=== PATIENT | female | born 1985 | race Caucasian/White ===

== ENCOUNTER → 2020-02-27 08:37 | Outpatient (BNVA) | payer OTHER, SELFPAY | PROVIDERS: PCP Internal Medicine; Visit Provider Physician Assistant | DX: Z76.89 Persons encountering health services in other specified circumstances (principal) ==

== ENCOUNTER 2020-03-09 14:13 | Outpatient (REF) | payer OTHER, SELFPAY ==
--- NOTE | 2020-03-09 14:30 | FL_ITS ---
EXAMINATION: FL MODIFIED BARIUM SWALLOW CLINICAL INFORMATION: Dysphagia. COMPARISON: None TECHNIQUE: Modified barium swallow. FINDINGS: Fluoroscopy provided for modified barium swallow done by speech pathology. Patient swallowed solids and liquids of varying consistency. No aspiration is seen. FLUOROSCOPY TIME: 1.2 minutes DOSE AREA PRODUCT: 4.0 uGy-m2 (microgray-meter squared) FL/FL barium swallow modified IMPRESSION: Fluoroscopy for modified barium swallow. No aspiration is seen. Please see speech pathology report for detailed evaluation.
== END 2020-03-09 14:14 | disposition home or self-care (01) ==
LOC: HO.XRAY 14:13
PROVIDERS: PCP Internal Medicine; Referring Provider Internal Medicine; Visit Provider Internal Medicine
DX: R13.10 Dysphagia, unspecified (principal)
CPT/HCPCS: 74230; 92611

== ENCOUNTER 2020-04-13 10:13 | Outpatient (REF) | payer OTHER, SELFPAY | END 2020-04-13 10:14 | disposition home or self-care (01) | LOC: HO.WFDLDS 10:13 | PROVIDERS: Visit Provider Internal Medicine | DX: Z20.822 Contact with and (suspected) exposure to COVID-19 (principal) | CPT/HCPCS: 36415; C9803; U0003 ==

== ENCOUNTER 2020-06-04 14:21 | Outpatient (REF) | payer OTHER, SELFPAY ==
[2020-06-04 15:45] LABS: MANUAL DIFF FLAG NO
[2020-06-04 16:01] LABS: Basophils Absolute Auto 0.1 X10*3/uL (0.0-0.2); Basophils Percent Auto 0.7 % (0-2); Eosinophils Absolute Auto 0.1 X10*3/uL (0.0-0.4); Eosinophils Percent Auto 1.5 % (0-4); Hematocrit 37.9 % (37-47); Imm Gran Abs Auto 0.02 X10*3/uL (0.00-0.03); Imm Gran Pct Auto 0.3 % (0.0-0.4); Lymphocytes Absolute Auto 2.2 X10*3/uL (1.2-4.9); Lymphocytes Percent Auto 31.9 % (20-40); Mean Corpuscular HGB Conc 34.3 g/dl (31.0-35.0); Mean Corpuscular Hemoglobin 30.1 pg (27.0-33.0); Mean Corpuscular Volume 87.7 fL (80-98); Mean Platelet Volume 9.1 fL (9.4-12.3); Monocytes Absolute Auto 0.6 X10*3/uL (0.1-1.2); Neutrophils Percent Auto 57.6 % (45-73); Platelet Count 251 X10*3/uL (160-400); Red Blood Count 4.32 X10*6/uL (4.20-5.50); Red Cell Distribution Width 12.4 % (11.0-16.0); White Blood Count 6.9 X10*3/uL (4.8-10.8)
[2020-06-04 16:12] LABS: Alanine Aminotransferase 11 U/L (0-31); Albumin Level 4.6 g/dL (3.5-5.0); Alkaline Phosphatase 63 U/L (39-117); Anion Gap 11 (12-20); Aspartate Amino Transferase 16 U/L (5-31); Bilirubin Total 0.3 mg/dL (0.0-1.0); Blood Urea Nitrogen 13 mg/dL (9-16); Calcium 9.2 mg/dL (8.4-10.2); Carbon Dioxide 27 mmol/L (22-29); Chloride 106 mmol/L (96-108); Estimated Glomerular Filt Rate > 60; Glucose Random 87 mg/dL (60-115); Potassium 4.1 mmol/L (3.3-5.1); Sodium 140 mmol/L (135-145); Total Protein 7.5 g/dL (6.5-8.0)
[2020-06-04 16:34] LABS: Thyroid Stimulating Hormone 0.63 uIU/mL (0.32-4.0)
== END 2020-06-04 14:22 | disposition home or self-care (01) ==
LOC: HO.LAB 14:21
PROVIDERS: PCP Internal Medicine; Visit Provider Physician Assistant
DX: R10.11 Right upper quadrant pain (principal); R13.10 Dysphagia, unspecified; K31.84 Gastroparesis; R74.01 Elevation of levels of liver transaminase levels; K59.09 Other constipation
CPT/HCPCS: 36415; 80053; 84443; 85025; 99212

== ENCOUNTER 2020-10-02 15:27 | Outpatient (REF) | payer OTHER, SELFPAY ==
--- NOTE | ~2020-10-02 | XR_ITS ---
EXAMINATION: XR LUMBOSACRAL SPINE CLINICAL INFORMATION: Lower back pain. COMPARISON: None. TECHNIQUE: 3 views of the lumbosacral spine. FINDINGS: The lumbar lordosis is maintained. No acute fracture or subluxation. No loss of vertebral body height. Loss of intervertebral disc height with endplate osteophytes at L5-S1. No lytic or blastic osseous lesion. No abnormal soft tissue calcification. XR/XR lumbar spine 2-3V IMPRESSION: Jxee-ee-reehkark degenerative disc disease at L5-S1.
== END 2020-10-02 15:28 | disposition home or self-care (01) ==
LOC: HO.HMGCX 15:27
PROVIDERS: PCP Internal Medicine; Visit Provider Internal Medicine
DX: M54.5 Low back pain (principal)
CPT/HCPCS: 72100

== ENCOUNTER 2021-09-14 15:35 | Outpatient (REF) | payer OTHER, SELFPAY ==
--- NOTE | ~2021-09-14 | MR_ITS ---
EXAMINATION: MR LUMBAR SPINE WITHOUT CONTRAST CLINICAL INFORMATION: 30-year-old with low back pain. COMPARISON: None. TECHNIQUE: MRI of the lumbar spine was obtained using routine sequences without contrast. FINDINGS: CORONAL ALIGNMENT: Slight upper lumbar levocurvature noted which is nonspecific and could be positional or related to muscle spasm. SAGITTAL ALIGNMENT: Normal. LUMBOSACRAL JUNCTION: Normal. 5 ddc-kkt-rzcsoxv lumbar-type vertebral bodies. VERTEBRAL BODIES: Normal height. DISC SPACES AND ENDPLATES: Aseyioyb-lh-bpxpzy loss of disc space height with intradiscal degenerative signal changes and spondylosis at L5-S1. Lgjb-gm-qxoimbhs loss of disc space height and disc desiccation asymmetric to the right at L1-L2. There is mild disc desiccation at L4-L5. Remaining intervertebral discs demonstrate normal height and signal with no significant spondylosis. There are Schmorl's nodes along the endplates anteriorly at L5-S1. SPINAL CANAL: No developmental abnormalities. BONE MARROW: Type I degenerative marrow signal changes noted along the endplates at L5-S1. Otherwise, bone marrow signal intensity appears grossly unremarkable. CONUS MEDULLARIS: Terminates at L1. Morphology and signal is normal. INTRADURAL NERVE ROOTS: Within normal limits. L5-S1: Mild disc bulging noted with minimal encroachment on the ventral dural sac. Superimposed tiny central disc herniation. No neural impingement. No significant DJD, canal or neural foraminal stenosis. L4-L5: Mild diffuse disc bulging noted with slight flattening of the ventral dural sac, with ligamentum flavum thickening and isjq-od-wxybjvrq bilateral facet arthropathy with no significant spinal canal stenosis. There is icdc-wf-uyuqchjv right-sided and mild left-sided neural foraminal stenosis. Small superimposed right foraminal disc protrusion with annular fissuring which abuts the exiting right L4 nerve root. L3-L4: Shallow broad-based left subarticular to foraminal disc protrusion without neural impingement. Mild facet arthropathy noted without significant canal stenosis. Minimal left-sided foraminal narrowing noted. L2-L3: Normal disc contour. No facet arthrosis, canal or neural foraminal stenosis. L1-L2: Mild right subarticular disc protrusion. No facet arthrosis, canal or neural foraminal stenosis. PARASPINAL/RETROPERITONEAL: The paravertebral soft tissues appear unremarkable. MR/MR lumbar spine wo con IMPRESSION: 1. Discogenic degenerative changes at L5-S1 and to a lesser degree at L1-L2 and L4-L5, with slight upper lumbar levocurvature noted. 2. Spondylosis and mild disc bulging at L5-S1 with a tiny central disc herniation, without significant canal or foraminal stenosis and no evidence for neural impingement. 3. Mild disc bulging and right foraminal disc herniation at L4-L5 with right lateral annular fissuring slightly impinging on the exiting right L4 nerve root with bepz-qi-lfxbslyy facet arthropathy at this level, with nvzl-ks-nzmkdfqh right-sided neural foraminal narrowing. 4. Mild facet arthrosis at L3-L4 with a shallow left subarticular to foraminal disc protrusion without neural impingement or spinal stenosis and a mild right subarticular disc protrusion at L1-L2 without neural impingement.
== END 2021-09-14 15:36 | disposition home or self-care (01) ==
LOC: HO.MRI 15:35
PROVIDERS: Visit Provider Internal Medicine
DX: M54.50 Low back pain, unspecified (principal); M47.816 Spondylosis without myelopathy or radiculopathy, lumbar region
CPT/HCPCS: 72148

== ENCOUNTER 2021-12-03 08:21 | Outpatient (REF) | payer OTHER, SELFPAY ==
[2021-12-03 11:42] LABS: Hematocrit 38.5 % (37.0-47.0); Hemoglobin 13.1 g/dl (12.0-16.0)
[2021-12-03 12:06] LABS: Alanine Aminotransferase 20 U/L (0-31); Albumin Level 4.3 g/dL (3.5-5.0); Alkaline Phosphatase 65 U/L (39-117); Anion Gap 14 (12-20); Aspartate Amino Transferase 23 U/L (5-31); Bilirubin Total 0.3 mg/dL (0.0-1.0); Blood Urea Nitrogen 14 mg/dL (9-16); Calcium 9.3 mg/dL (8.4-10.2); Carbon Dioxide 26 mmol/L (22-29); Chloride 106 mmol/L (96-108); Cholesterol 210 mg/dL; Estimated Glomerular Filt Rate > 60; Glucose Fasting 84 mg/dL (60-99); HDL Cholesterol 53 mg/dL; LDL Cholesterol Calculated 142 mg/dl; Potassium 4.5 mmol/L (3.3-5.1); Sodium 141 mmol/L (135-145); Total Protein 7.3 g/dL (6.5-8.0); Triglycerides 77 mg/dL
[2021-12-03 12:15] LABS: TSH reflex Free T4 0.62 uIU/mL (0.32-4.0)
== END 2021-12-03 08:22 | disposition home or self-care (01) ==
LOC: HO.HMGCLDS 08:21
PROVIDERS: PCP Internal Medicine; Visit Provider Internal Medicine
DX: Z00.01 Encounter for general adult medical examination with abnormal findings (principal); E66.09 Other obesity due to excess calories
CPT/HCPCS: 36415; 80053; 80061; 84443; 85014; 85018

== ENCOUNTER 2022-01-28 10:40 | Outpatient (REF) | payer OTHER, SELFPAY ==
[2022-01-28 14:36] LABS: CT PCR NOT DETECTED (Not Detect.); NG PCR NOT DETECTED (Not Detect.)
[2022-01-29 14:59] LABS: BV Int Neg Control Negative (Negative)
[2022-01-29 15:00] LABS: BV Int Pos Control Positive (Positive)
[2022-02-08 06:37] LABS: HPV mRNA E6/E7 rflx Not Detected (Not Detected)
== END 2022-01-28 10:41 | disposition home or self-care (01) ==
LOC: HO.LNP 10:40
PROVIDERS: Visit Provider Advanced Practice Midwife
DX: Z01.419 Encounter for gynecological examination (general) (routine) without abnormal findings (principal); Z11.51 Encounter for screening for human papillomavirus (HPV); R10.2 Pelvic and perineal pain
CPT/HCPCS: 87480; 87491; 87510; 87591; 87624; 87660; 88142

== ENCOUNTER 2022-03-04 11:01 | Outpatient (REF) | payer OTHER, SELFPAY ==
--- NOTE | ~2022-03-04 | US_ITS ---
EXAMINATION: US PELVIS COMPLETE CLINICAL INFORMATION: Pain COMPARISON: None TECHNIQUE: Transabdominal and transvaginal imaging was performed. FINDINGS: The uterus is of normal size and echogenicity measuring 7.4 x 5.4 x 6.0 cm. A regular homogeneous endometrium is identified measuring 1.0 cm. Nabothian cysts in the cervix. A subcentimeter tiny echogenic focus measuring 2 mm in the lower uterine segment at the junction of the uterus and cervix could reflect a tiny endocervical or endometrial polyp, which could be further characterized with saline sonohysterogram if warranted. Both ovaries are of normal size and echogenicity. The right measures 2.3 x 1.6 x 1.7 cm for a volume of 3.3 mL. The left measures 3.0 x 1.5 x 1.6 cm for a volume of 3.8 mL. There is no pelvic free fluid. US/US pelvic and transvaginal IMPRESSION: A subcentimeter tiny echogenic focus measuring 2 mm in the lower uterine segment at the junction of the uterus and cervix could reflect a tiny endocervical or endometrial polyp, which could be further characterized with saline sonohysterogram if warranted.
== END 2022-03-04 11:02 | disposition home or self-care (01) ==
LOC: HO.US 11:01
PROVIDERS: Visit Provider Advanced Practice Midwife
DX: R10.2 Pelvic and perineal pain (principal)
CPT/HCPCS: 76830; 76856

== ENCOUNTER → 2022-03-22 08:29 | Outpatient (BNVA) | payer OTHER, SELFPAY | PROVIDERS: PCP Internal Medicine; Visit Provider Advanced Practice Midwife | DX: Z71.2 Person consulting for explanation of examination or test findings (principal); R10.2 Pelvic and perineal pain; R93.5 Abnormal findings on diagnostic imaging of other abdominal regions, including retroperitoneum | CPT/HCPCS: 99212 ==

== ENCOUNTER → 2022-04-18 11:38 | Outpatient (BNVA) | payer OTHER, SELFPAY | PROVIDERS: PCP Internal Medicine; Visit Provider Obstetrics & Gynecology | DX: N84.0 Polyp of corpus uteri (principal) | CPT/HCPCS: 99212 ==

== ENCOUNTER 2022-05-10 11:18 | Outpatient (REF) | payer OTHER, SELFPAY ==
--- NOTE | ~2022-05-10 | US_ITS ---
EXAMINATION: US PELVIS CLINICAL INFORMATION: Uterine polyp. COMPARISON: None TECHNIQUE: Ultrasound of the pelvis is performed using both transabdominal and transvaginal transducers along with Doppler. Transvaginal imaging is performed due to inadequate visualization transabdominally. FINDINGS: UTERUS: The uterus is anteverted and measures 8.6 x 3.3 x 5.8 cm. The double wall endometrial thickness is 0.8 mm. The uterus is smooth in contour and has normal myometrial echogenicity. No visible fibroid. A small echogenic focus is seen in the lower uterine segment measuring 4 mm in/near the endometrial canal. This is increased in size from prior when it measured 2 mm. Nabothian cysts are present in the cervix. ADNEXA: Both ovaries are visualized. There is normal color flow to the adnexa. There is no ovarian torsion. There is no pelvic ascites or fluid collection. Right ovary measures 2.3 x 1.1 x 2.0 cm for a volume of 2.6 mL. Left ovary measures 2.0 x 1.4 x 1.7 cm for a volume of 2.5 mL. US/US pelvic and transvaginal IMPRESSION: 4 mm echogenic focus seen in the lower uterine segment increased from prior exam. This could be an endometrial polyp which could be evaluated with hysterosonography for confirmation. No other significant abnormality is seen.
== END 2022-05-10 11:19 | disposition home or self-care (01) ==
LOC: HO.US 11:18
PROVIDERS: Visit Provider Advanced Practice Midwife
DX: N84.0 Polyp of corpus uteri (principal)
CPT/HCPCS: 76830; 76856

== ENCOUNTER → 2022-05-25 09:56 | Outpatient (BNVA) | payer OTHER, SELFPAY | PROVIDERS: PCP Internal Medicine; Visit Provider Obstetrics & Gynecology | DX: N84.0 Polyp of corpus uteri (principal) | CPT/HCPCS: 99212 ==

== ENCOUNTER 2022-07-15 08:48 | Day surgery (SDC) | payer OTHER, SELFPAY ==
[2022-06-10 14:55] VITALS: BMI 33.3
--- NOTE | 2022-07-14 09:49 | HO.ANESPROP2 ---
Documented by User: Leonela Ramirez NP 07/14/22 09:49 HPI - Anesthesia Eval Consult details Narrative: 37yo F for D&C Hysteroscopy,possible polypectomy possible myomectomy PMFSH Active Problems Active Problems: All Active Problems (Updated 06/10/22 @ 14:43 by Ro Pradhan RN) Lumbar pain (Acute) Encounter for general adult medical examination with abnormal findings (Acute) Obesity due to excess calories (Acute) Degenerative joint disease (DJD) of lumbar spine (Acute) Lumbar pain (Acute) Herniated nucleus pulposus, lumbar (Acute) Neural foraminal stenosis of lumbar spine (Acute) Abnormal MRI, lumbar spine (Acute) Encounter for routine gynecological examination (Acute) Acid reflux (Acute) Encounter for annual routine gynecological examination (Acute) Pelvic pain in female (Acute) Endometrial polyp (Acute) Difficulty swallowing (Acute) Past Medical History Medical History (Updated 06/10/22 @ 14:43 by Ro Pradhan RN) Degenerative joint disease (DJD) of lumbar spine Difficulty swallowing GERD (gastroesophageal reflux disease) Family History Family History Father No problems noted. Maternal Grandfather Coronary atherosclerosis of bypass graft Paternal Grandfather Diabetes Surgical History Surgical History (Updated 06/10/22 @ 14:55 by Ro Pradhan RN) Hx of appendectomy Social History Social History Household Members: Family and Children Household Members Other:: mother & son Housing: House Are you a primary manager intensive care unit to a significant other at home: Yes (son is a minor) Do you presently have visiting nurse or other home services: No Alcohol intake: never Patient Tobacco Use Status: Never used Tobacco e-Cigarette/Vaping Use: Never Used Second Hand Smoke Exposure: No service: Yes Current occupational status: employed Current occupation: [employer] Cognitive needs: No Hearing needs: No Vision needs: Yes Meds Allergies Allergy/AdvReac Type Severity Reaction Status Date / Time No Known Allergies Allergy Verified 05/25/22 10:02 Home Medications Medication Instructions Recorded Confirmed Last Taken Type No Known Home Meds 08/24/21 06/10/22 Unknown History Exam Exam Date and Time: July 14, 2022 0949 Height,Weight and Vital Signs: Height 5 ft 7 in Weight 96.615 kg Assessment and Plan Assessment Anesthesia Assessment: Chart Reviewed Documented by User: Freddy Guthrie MD 07/15/22 10:02 [facility] Past Medical History Medical History (Updated 06/10/22 @ 14:43 by Ro Pradhan RN) Degenerative joint disease (DJD) of lumbar spine Difficulty swallowing GERD (gastroesophageal reflux disease) Patient : No Family History Family History Father No problems noted. Maternal Grandfather Coronary atherosclerosis of bypass graft Paternal Grandfather Diabetes Family history of problems with anesthesia: No Surgical History Surgical History (Updated 06/10/22 @ 14:55 by Ro Pradhan RN) Hx of appendectomy History of Problems with Anesthesia: No Social History Social History Household Members: Family and Children Household Members Other:: mother & son Housing: House Are you a primary manager intensive care unit to a significant other at home: Yes (son is a minor) Do you presently have visiting nurse or other home services: No Alcohol intake: never Patient Tobacco Use Status: Never used Tobacco e-Cigarette/Vaping Use: Never Used Second Hand Smoke Exposure: No service: Yes Current occupational status: employed Current occupation: [employer] Cognitive needs: No Hearing needs: No Vision needs: Yes Meds Allergies Allergy/AdvReac Type Severity Reaction Status Date / Time No Known Allergies Allergy Verified 05/25/22 10:02 Home Medications Medication Instructions Recorded Confirmed Last Taken Type No Known Home Meds 08/24/21 06/10/22 Unknown History Exam Airway Mallampati Class: I TM Dist: >3cm Neck ROM: Full Heart: ok Lungs: ok Assessment and Plan Assessment Anesthesia Assessment: Anesthesia Plan Discussed Final Anesthetic Review Family History of Problems with Anesthesia: No History of Problems with Anesthesia: No NPO: Yes ASA Class: II Final Preanesthetic Review: No Changes in Pt Med Stat, Meds/Allgs Chart Reviewed, Consent Obtained/Reviewed and Anes Risks/Benef Reviewed Patient Risk: Low Procedure Risk: Low Anesthetic Plan Anesthetic Plan: GA and Agree w/ Assess. and Plan Disposition: Standard PACU
[2022-07-15] VITALS (7 sets, daily range): BP systolic 111–130; BP diastolic 64–88; PULSE 55–84; RESP 16–18; TEMP 36.6–36.8; O2SAT 96–100; BMI 33.6
[2022-07-15 09:20] LABS: UPreg QC Valid YES; Urine Pregnancy NEGATIVE (NEGATIVE)
[2022-07-15] MEDS: Lactated Ringers 1,000 ML 100 ML IVCONT (09:44)
--- NOTE | 2022-07-15 10:23 | MHC.SHP ---
Pre-Procedural Eval Section A Date of Service: 07/15/22 The patient is an INPATIENT: No Changes since office visit: No Cold of Flu in the past 2 weeks, No New Medical Problems, No Changes in Medication and No Patient answered all questions The History & Physical has been completed within 30 days and I have reviewed it.: Yes Section B Chief Complaint: Polyp of corpus uteri Allergies: Allergies Allergy/AdvReac Type Severity Reaction Status Date / Time No Known Allergies Allergy Verified 05/25/22 10:02 Plan Diagnosis/Plan: Unchanged I have reviewed the history and physical and performed a pertinent physical examination on my patient. No changes have occurred unless specified. Time Spent With Patient Time: Total time managing care of this patient today ____ minutes.
--- NOTE | 2022-07-15 11:02 | PM.OP ---
Brief Operative Note Date of Service: 07/15/22 Pre-op diagnosis: Endometrial polyp by ultrasound Post-op diagnosis: same (? Endometrial polyp) Procedure: Hysteroscopy D&C, Polypectomy Surgeon: Chuy Segovia MD Anesthesia: GLMA Was an Typesetter Perforator Operator used for this Procedure?: No Estimated blood loss (mL): 0 Pathology: other (Endometrial Scrapping. ? Polyp) Condition: stable Disposition: PACU
--- NOTE | 2022-07-15 11:03 | W.PM.OPN ---
Operative Note Operative Note Date of Service: 07/15/22 Narrative: Preop Diagnosis: Endometrial polyp by US Operation: Diagnostic Hysteroscopy, Dilataion & Curettage and polypectomy Post Op Diagnosis: Questionable small lower uterine segment Endometrial Polyp QBL: Minimal Anesthesia: GLMA Surgeon: Chuy Segovia MD Channel Process Plant Operator: None Complication: None Pathology: Endometrial Scrapings, ? Endometrial polyp Procedure: The patient was put in the dorsal lithotomy position, scrubbed, and draped in the usual manner. A sterile speculum was inserted in the patient's vagina. The anterior lip of the cervix was grasped with a single tooth tenaculum. The cervix was dilated up to 5 mm, then the scope was inserted in the patient's uterus. Inspection revealed a small questionable lower uterine segment endometrial polyp. The Myosure Reach device was used; it was introduced through the operative channel and removal of the tissues looking like questionable polyp was done with no complications. The scope was then taken out from the uterine cavity, sharp curettings was carried on with minimal to moderate amount of tissues retrieved. At the end of the procedure, all instruments were taken out of the patient uterine and vaginal cavity. The single tooth tenaculum was removed and homeostasis was assured using pressure,. The patient tolerated the procedure well and was transferred to the PACU in a stable condition.
[2022-07-15] MEDS: Acetaminophen 1,000 MG/100 ML PIGGYBACK 400 MG IV (11:46)
[2022-07-15] MEDS: Ketorolac Tromethamine 30 MG/ML VIAL IVPUSH (11:48)
== END 2022-07-15 13:10 | disposition home or self-care (01) ==
PROVIDERS: Nurse Practitioner; PCP Internal Medicine; Visit Provider Obstetrics & Gynecology
PROC: 0UDB8ZZ Extraction of Endometrium, Via Natural or Artificial Opening Endoscopic (ICD-10-PCS; CPT 58558; principal; 2022-07-15 10:30)
DX: N84.0 Polyp of corpus uteri (principal)
CPT/HCPCS: 58558; 81025; 88305; J0131; J1885; J2250; J3010

== ENCOUNTER → 2022-07-28 11:50 | Outpatient (BNVA) | payer OTHER, SELFPAY | PROVIDERS: PCP Internal Medicine; Visit Provider Obstetrics & Gynecology | DX: N84.0 Polyp of corpus uteri (principal); Z98.890 Other specified postprocedural states | CPT/HCPCS: 99212 ==

== ENCOUNTER 2023-02-01 07:58 | Outpatient (AMB) | payer BC, SELFPAY ==
[2023-02-01 08:13] VITALS: BP 110/70; BMI 30.9
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
== END 2023-02-01 08:30 | disposition home or self-care (01) ==
PROVIDERS: Visit Provider Advanced Practice Midwife
DX: Z01.419 Encounter for gynecological examination (general) (routine) without abnormal findings (principal)
CPT/HCPCS: 99395

== ENCOUNTER → 2023-02-01 07:58 | Outpatient (BNVA) | payer BC, SELFPAY | PROVIDERS: Visit Provider Advanced Practice Midwife ==

== ENCOUNTER 2023-07-11 14:29 | Outpatient (AMB) | payer BC, SELFPAY ==
[2023-07-11 14:35] VITALS: BP 114/80; PULSE 80; O2SAT 98; BMI 30.2
--- NOTE | 2023-07-11 14:35 | MHC.PC.OV ---
Vital Signs 07/11/23 14:35 Height 5 ft 7 in Weight 193 lb BMI 30.2 BP 114/80 Blood Pressure Location Lt brachial Position Sitting Pulse 80 Pulse Source Pulse Oximeter Pulse Oximetry (%) 98 Oxygen Delivery Method Room Air Intake Visit Reasons: Annual Physical Allergies No Known Allergies Allergy (Verified 07/11/23 14:35) Medication List - Last Reconciled 07/11/23 by Starr Licea MD No Known Home Meds Tobacco use date assessed: 07/11/23 Dental Screening Dental Screen Date: 07/11/23 Did you have a dental visit in the last 12 months?: Yes Did you have a dental problem in the last 6 months where you did not have access to dental care?: No Was dental information given to patient?: Patient has dentist HPI Annual Physical HPI Details Patient is a 38-year-old female who came in today for physical examination Patient was last seen 2021 She has a long history of acid reflux She was started on omeprazole which started causing headaches so she stopped Now she is using [id number] Prilosec and is tolerating but she is only taking it when her symptoms are worse She is at that point where now she is having difficulty swallowing solids and have a 80 dated cough I have sent famotidine prescription with the patient she is to start taking that And referral to gastroenterology placed Lab order placed to be done fasting. She also need to lose weight as BMI is elevated. Patient have OBGYN at [facility] and she is seeing them yearly, breast exams are through OBGYN [facility] Medical History Degenerative joint disease (DJD) of lumbar spine GERD (gastroesophageal reflux disease) Difficulty swallowing Surgical History Hx of appendectomy Family History Father No problems noted. Maternal Grandfather Coronary atherosclerosis of bypass graft Paternal Grandfather Diabetes Social History Household Members: Family and Children Household Members Other:: mother & son Housing: House Are you a primary care trainer to a significant other at home: Yes (son is a minor) Do you presently have visiting nurse or other home services: No Alcohol intake: never Patient Tobacco Use Status: Never used Tobacco e-Cigarette/Vaping Use: Never Used Second Hand Smoke Exposure: No service: Yes Current occupational status: employed Current occupation: [employer] Cognitive needs: No Hearing needs: No Vision needs: Yes Female Reproductive History Menstrual Age of Menarche: 14 Questionnaire PHQ-9 Over the last 2 weeks, how often have you been bothered by any of the following problems? 1. Little interest or pleasure in doing things: not at all 2. Feeling down, depressed, or hopeless: not at all 3. Trouble falling or staying asleep, or sleeping too much: not at all 4. Feeling tired or having little energy: not at all 5. Poor appetite or overeating: not at all 6. Feeling bad about yourself - or that you are a failure or have let yourself or your family down: not at all 7. Trouble concentrating on things, such as reading the newspaper or watching television: not at all 8. Moving or speaking so slowly that other people could have noticed. Or the opposite - being so fidgety or restless that you have been moving around a lot more than usual: not at all 9. Thoughts that you would be better off or of hurting yourself in some way: not at all Total score: 0 Depression Screening Interpretation: Negative Depression Screening Done: Yes 21803 - PHQ-9 Billing: Yes Source: Developed by Drs. Gregory Montero, Sushma Rosenberg, Nikos Santiago and colleagues, with an educational bin from [employer]. Thrive Questionnaire Date Thrive assessed: 07/11/23 I am a: Patient Within the past 12 months, did the food you bought not last and you didn't have the money to get more?: Never true Within the past 12 months, did you worry whether your food would run out before you got money to buy more?: Never true Do you have trouble paying for medicines?: No Do you have trouble getting transportation to medical appointments?: No Do you have trouble paying your heating and electricity bill?: No Do you have trouble taking care of your child, family member or friend?: No Do you have trouble with day-to-day activities such as bathing, preparing meals, shopping, managing finances, etc.?: No Are you currently unemployed and looking for a job?: No Are you interested in more education?: No Please select the resources that you would like help with: None Currently or been in a relationship where the following occur: no concerns reported THRIVE Score: 0 AUDIT C Alcohol Use Questionnaire (AUDIT-C) 1. How often do you have a drink containing alcohol?: Never 3. How often do you have six or more drinks on one occasion?: Never Total Score: 0 Score Reviewed/Action Taken: No REMA-7 AMB Questionnaire REMA-7 Date REMA - 7 assessed: 07/11/23 Feeling nervous, anxious, or on edge: 0 = Not at all Not being able to stop or control worryin = Not at all Worrying too much about different things: 0 = Not at all Trouble relaxin = Not at all Being so restless that it is hard to sit still: 0 = Not at all Becoming easily annoyed or irritable: 0 = Not at all Feeling afraid as if something awful might happen: 0 = Not at all Total REMA-7 score (0-4 normal; 5-9 mild; 10-14 moderate; 15-21 severe): 0 Source: Developed by Drs. Gregory Montero, Sushma Rosenberg, Nikos Santiago and colleagues, with an educational bin from [employer]. REMA-7 Assessment Billing REMA-7 Assessment Tool: REMA-7 Assessment 56347 Review of Systems Const Denies chills, Denies fever(s) and Denies headache(s) Eyes Denies blurry vision ENT Denies headache(s), Denies nasal discharge, Denies nasal obstruction, Denies odynophagia and Denies sinus pain Card Denies chest pain at rest and Denies chest pain with activity Resp Denies cough and Denies hemoptysis GI Denies diarrhea, Denies odynophagia, Denies vomiting and Denies hematemesis Reports as per HPI Musc Denies abnormal gait Skin/Breast Reports as per HPI Neuro Denies Neuro-related abnormal movements, Denies Abnormal speech present, Denies abnormal gait, Denies headache(s) and Denies Sensory deficit (Neuro) Psych Denies mood swings and Denies paranoia Endo Reports as per HPI Bryant/Lymph Reports as per HPI Aller/Immun Reports as per HPI Physical exam (Primary Care) Vital Signs: Last Vital Signs Pulse 80 07/11/23 14:35 BP 114/80 07/11/23 14:35 Pulse Ox 98 07/11/23 14:35 Oxygen Delivery Method Room Air 07/11/23 14:35 BMI result Body Mass Index 30.2 Tobacco/Smoking Status: Tobacco use Status Tobacco use date assessed 07/11/23 07/11/23 14:36 Patient Tobacco Use Status Never used Tobacco 07/11/23 14:36 e-Cigarette/Vaping Use Never Used 07/11/23 14:36 PHQ-9: PHQ-9 Score PHQ-9: Total score 0 07/11/23 15:07 Depression Screening Interpretation: Negative Thrive Assessment: Date of Thrive Assessment Date Thrive assessed 07/11/23 07/11/23 14:39 Currently or been in a relationship where the following occur: no concerns reported Const General: cooperative, comfortable and no acute distress Orientation/consciousness: patient oriented x3 HENMT Head: Yes normocephalic and Yes atraumatic Eyes General: appearance normal, both eyes and all related structures Pupils: Equal, round and reactive pupils present EOM: EOMs intact bilaterally Neck Neck: Yes supple and No lymphadenopathy Thyroid: Thyroid normal Lymphatic: no lymphadenopathy noted Resp Effort & Inspection: normal respiratory effort and able to speak in complete sentences Auscultation: clear to auscultation bilaterally Cardio Heart sounds: S1 normal heart sound present and S2 normal heart sound present GI Palpation (GI): Soft to palpation and nontender Auscultation: normal bowel sounds General: Yes no CVA tenderness Back/Spine/Pelvis Back: no CVA tenderness Skin General skin exam: elasticity normal and turgor normal Neuro General: patient oriented x3 and gait normal Cranial nerves: Yes Equal, round and reactive pupils present Speech: No Abnormal speech present Sensory Exam: No Sensory deficit (Neuro) Coordination: tandem gait normal and Romberg test negative Extrem General: Yes normal exam except as noted and No edema Assessment and Plan Assessment & Plan (1) Encounter for general adult medical examination with abnormal findings: Code(s): Z00.01 - Encounter for general adult medical examination with abnormal findings (2) Acid reflux: Code(s): K21.9 - Gastro-esophageal reflux disease without esophagitis Qualifiers: Esophagitis bleeding: unspecified whether hemorrhage Esophagitis presence: with esophagitis Qualified Code(s): K21.00 - Gastro-esophageal reflux disease with esophagitis, without bleeding (3) Difficulty swallowing solids: Code(s): R13.10 - Dysphagia, unspecified Plan Patient is a 38-year-old female who came in today for physical examination Patient was last seen 2021 She has a long history of acid reflux She was started on omeprazole which started causing headaches so she stopped Now she is using [id number] Prilosec and is tolerating but she is only taking it when her symptoms are worse She is at that point where now she is having difficulty swallowing solids and have a 80 dated cough I have sent famotidine prescription with the patient she is to start taking that And referral to gastroenterology placed Lab order placed to be done fasting. She also need to lose weight as BMI is elevated. Patient have OBGYN at [facility] and she is seeing them yearly, breast exams are through OBGYN Orders: Orders Lipid Panel Today K21.9 - Gastro-esophageal reflux disease without esophagitis, R13.10 - Dysphagia, unspecified, Z00.01 - Encounter for general adult medical examination with abnormal findings Complete Blood Count Auto Diff Today K21.9 - Gastro-esophageal reflux disease without esophagitis, R13.10 - Dysphagia, unspecified, Z00.01 - Encounter for general adult medical examination with abnormal findings Comprehensive [place]. Panel Fast Today K21.9 - Gastro-esophageal reflux disease without esophagitis, R13.10 - Dysphagia, unspecified, Z00.01 - Encounter for general adult medical examination with abnormal findings TSH reflex Free T4 Today K21.9 - Gastro-esophageal reflux disease without esophagitis, R13.10 - Dysphagia, unspecified, Z00.01 - Encounter for general adult medical examination with abnormal findings Vitamin D 25-OH (D2 and D3) Today K21.9 - Gastro-esophageal reflux disease without esophagitis, R13.10 - Dysphagia, unspecified, Z00.01 - Encounter for general adult medical examination with abnormal findings Referrals Gastroenterology Referral K21.9 - Gastro-esophageal reflux disease without esophagitis, R13.10 - Dysphagia, unspecified Medications: New famotidine 40 mg PO DAILY 30 tabs 1RF Coding Level of Care Code Est Pt Level 3 (78774) Est Pt Prev Care 18-39y(03376) Diagnoses Encounter for general adult medical examination with abnormal findings Z00.01 Gastroesophageal reflux disease with esophagitis, unspecified whether hemorrhage K21.00 Esophagitis bleeding: unspecified whether hemorrhage Esophagitis presence: with esophagitis Difficulty swallowing solids R13.10 Additional Codes REMA-7 Assessment Billing - REMA-7 Assessment Tool: REMA-7 Assessment 68032 ([id number])
== END 2023-07-11 15:03 | disposition home or self-care (01) ==
PROVIDERS: PCP Internal Medicine; Visit Provider Internal Medicine
DX: Z00.01 Encounter for general adult medical examination with abnormal findings (principal); K21.00 Gastro-esophageal reflux disease with esophagitis, without bleeding; R13.10 Dysphagia, unspecified
CPT/HCPCS: 99213; 99395

== ENCOUNTER 2023-08-14 06:03 | Outpatient (REF) | payer BC, SELFPAY ==
[2023-08-14 06:15] LABS: MANUAL DIFF FLAG NO
[2023-08-14 07:45] LABS: Basophils Absolute Auto 0.1 X10*3/uL (0.0-0.2); Basophils Percent Auto 1.2 % (0-2); Eosinophils Absolute Auto 0.2 X10*3/uL (0.0-0.4); Eosinophils Percent Auto 2.9 % (0-4); Hematocrit 39.7 % (37.0-47.0); Hemoglobin 13.5 g/dl (12.0-16.0); Imm Gran Abs Auto 0.02 X10*3/uL (0.00-0.03); Imm Gran Pct Auto 0.3 % (0.0-0.4); Lymphocytes Percent Auto 30.6 % (20-40); Mean Corpuscular Hemoglobin 29.7 pg (27.0-33.0); Mean Corpuscular Volume 87.3 fL (80.0-98.0); Mean Platelet Volume 9.5 fL (9.4-12.3); Monocytes Absolute Auto 0.7 X10*3/uL (0.1-1.2); Monocytes Percent Auto 10.1 % (2-11); Neutrophils Absolute Auto 3.6 x10*3/uL (2.0-8.3); Neutrophils Percent Auto 54.9 % (45-73); Platelet Count 228 X10*3/uL (160-400); Red Blood Count 4.55 X10*6/uL (4.20-5.50); Red Cell Distribution Width 12.4 % (11.0-16.0); White Blood Count 6.6 X10*3/uL (4.8-10.8)
[2023-08-14 08:31] LABS: Alanine Aminotransferase 15 U/L (0-31); Albumin Level 4.4 g/dL (3.5-5.0); Alkaline Phosphatase 61 U/L (39-117); Anion Gap 14 (12-20); Aspartate Amino Transferase 18 U/L (5-31); Bilirubin Total 0.4 mg/dL (0.0-1.0); Blood Urea Nitrogen 17 mg/dL (9-16); Calcium 9.5 mg/dL (8.4-10.2); Carbon Dioxide 24 mmol/L (22-29); Chloride 107 mmol/L (96-108); Cholesterol 207 mg/dL (<200); Estimated Glomerular Filt Rate > 60; Glucose Fasting 86 mg/dL (60-99); HDL Cholesterol 58 mg/dL (>40); LDL Cholesterol Calculated 135 mg/dL (<100); Potassium 4.1 mmol/L (3.3-5.1); Sodium 141 mmol/L (135-145); Total Protein 7.6 g/dL (6.5-8.0); Triglycerides 74 mg/dL (<150)
[2023-08-14 08:33] LABS: TSH reflex Free T4 0.91 uIU/mL (0.32-4.0)
[2023-08-18 16:03] LABS: Vitamin D 25-OH, D2 <4 ng/mL; Vitamin D 25-OH, D3 22 ng/mL; Vitamin D 25-OH, Total 22 ng/mL (30-100)
== END 2023-08-14 06:04 | disposition home or self-care (01) ==
LOC: HO.LAB 06:03
PROVIDERS: PCP Internal Medicine; Visit Provider Internal Medicine
DX: Z00.01 Encounter for general adult medical examination with abnormal findings (principal); R13.10 Dysphagia, unspecified; K21.9 Gastro-esophageal reflux disease without esophagitis
CPT/HCPCS: 36415; 80053; 80061; 82306; 84443; 85025

== ENCOUNTER 2023-08-14 07:17 | Outpatient (AMB) | payer BC, SELFPAY ==
[2023-08-14 07:21] VITALS: BP 137/74; PULSE 72; BMI 30.7
--- NOTE | 2023-08-14 07:21 | A.OFFVIS_ITS ---
Vital Signs 08/14/23 07:21 Height 5 ft 7 in Weight 196 lb 3.382 oz BMI 30.7 BP 137/74 Blood Pressure Location Lt brachial Position Sitting Pulse 72 Intake Visit Reasons: GERDand Dysphagia Intake Note: Patient referred by PCP Dr. Licea for GERD and dysphagia. Was prescribed Famotidine and taking it daily. Reports some improvement with famotide. Recent drawn this morning. Patient c/o: diarrhea/ soft stools. Has not have solid BM in months. Stomach upset. Taking TUMS daily. Tooth Grinder Required: No Accompanied by: Self / Same As Patient Allergies No Known Allergies Allergy (Verified 08/14/23 07:27) HPI Comments Details: A 38 y/.o female with dysphagia x 4 years- drinks full water bottle when she eats - severe acid reflux- seen in and 2020-she was to be scheduled for EGD poss dil- she did not follow through- she had anxiety- in which seems to have improved- She does have loose stools past few months- she feels sour stomach -she says that she is less stress now than she has ever been so does not feel it is likely IBS Famotidine 40 mg-seems to get better coverage than previously omeprazole. However she continues to have some breakthrough. Nothing specific exacerbate or improve sx She has no other GI or general complaints No nausea, vomiting hematemesis, hematochezia fever or PFSH Medical History Degenerative joint disease (DJD) of lumbar spine GERD (gastroesophageal reflux disease) Difficulty swallowing Surgical History Hx of appendectomy Family History Father No problems noted. Maternal Grandfather Coronary atherosclerosis of bypass graft Paternal Grandfather Diabetes Social History Household Members: Family and Children Household Members Other:: mother & son Housing: House Are you a primary home health care coordinator to a significant other at home: Yes (son is a minor) Do you presently have visiting nurse or other home services: No Alcohol intake: never Patient Tobacco Use Status: Never used Tobacco e-Cigarette/Vaping Use: Never Used Second Hand Smoke Exposure: No service: Yes Current occupational status: employed Current occupation: [employer] Cognitive needs: No Hearing needs: No Vision needs: Yes Female Reproductive History Menstrual Age of Menarche: 14 Review of Systems Const All systems reviewed & are unremarkable except as noted in HPI and below Card Denies chest pain and Denies dyspnea Resp Denies dyspnea GI Reports heartburn and Reports loose stools Physical Exam Vital Signs: Last Vital Signs Pulse 72 08/14/23 07:21 BP 137/74 08/14/23 07:21 BMI result Body Mass Index 30.7 Const General: cooperative, healthy appearing, comfortable and no acute distress Orientation/consciousness: patient oriented x3 Limitations: no limitations Resp Effort & Inspection: normal respiratory effort and able to speak in complete sentences Auscultation: clear to auscultation bilaterally, no rales, no rhonchi and no wheezes Cardio Rate: regular rate Rhythm: regular rhythm Heart sounds: S1 normal heart sound present and S2 normal heart sound present GI Palpation (GI): Soft to palpation and nontender Auscultation: normal bowel sounds Skin General skin exam: no rashes or lesions noted Neuro General: patient oriented x3 Extrem General: Yes full ROM Psych Appearance: grossly normal and well kempt Mental Status: mental status grossly normal Speech and movement: Normal speech and movement present and Clear speech present Affect: normal affect Attitude: cooperative Thought process: Normal thought process present Thought content: Normal thought content present Insight: Good insight present (Psych) Judgement: Good judgement present (Psych) Assessment & Plan Assessment & Plan (1) Acid reflux: Code(s): K21.9 - Gastro-esophageal reflux disease without esophagitis Category: Medical Qualifiers: Esophagitis bleeding: unspecified whether hemorrhage Esophagitis presence: with esophagitis Qualified Code(s): K21.00 - Gastro-esophageal reflux disease with esophagitis, without bleeding Plan: , will get stool antigen for H pylori if positive will treat Trial of Carafate-she may continue famotidine after sample submit (2) Difficulty swallowing solids: Comment: Years of dysphagia, will get upper GI series interim awaiting for EGD,to r/o pud, nonulcer dyspepsia, esophagitis ETC as we are booked out several months Code(s): R13.10 - Dysphagia, unspecified Category: Medical Plan: Eat slowly chew well EGD (3) Change in bowel function: Comment: Change in bowels, may have functional component however needs further evaluated- r/o infectious or chronic disease other endoscopic findings to account for her sx Colonoscopy Discussed procedures, rare risks need for escort Code(s): R19.8 - Other specified symptoms and signs involving the digestive system and abdomen Category: Medical Plan: Colonoscopy negative will be reassured Plan HP stool UGI EGD/ colon- Pt to call for results see after procedures- Orders: Orders H pylori Ag Stool Today A04.8 - Other specified bacterial intestinal infections [place] upper GI series Today K21.00 - Gastro-esophageal reflux disease with esophagitis, without bleeding, R13.10 - Dysphagia, unspecified EGD/Pomaria Combo - GI Use Only Today K21.00 - Gastro-esophageal reflux disease with esophagitis, without bleeding, R13.10 - Dysphagia, unspecified, R19.8 - Other specified symptoms and signs involving the digestive system and abdomen Medications: New bisacodyl (Dulcolax (bisacodyl)) Day before procedure @ 12 noon Take 4 tablets by mouth followed by large glass of water 20 mg (4 x 5 mg) PO ONCE 1 day PRN 4 tabs 0RF colonoscopy prep Z12.11 - Encounter for screening for malignant neoplasm of colon polyethylene glycol 3350 (Miralax) Take as directed by mouth the day before your procedure. 238 grams PO ONCE 1 day PRN 238 grams 0RF laxative effect sucralfate 1 g (10 mL) PO QIDACHS 4 weeks 420 mL 0RF Changed From famotidine 40 mg PO DAILY 30 tabs 1RF To famotidine 40 mg PO DAILY 30 days 30 tabs 5RF Coding Level of Care Code New Pt Level 4 (85881) Diagnoses Gastroesophageal reflux disease with esophagitis, unspecified whether hemorrhage K21.00 Esophagitis bleeding: unspecified whether hemorrhage Esophagitis presence: with esophagitis Difficulty swallowing solids R13.10 Change in bowel function R19.8 Time Spent (min) 35
== END 2023-08-14 08:58 | disposition home or self-care (01) ==
PROVIDERS: PCP Internal Medicine; Visit Provider Physician Assistant
DX: K21.00 Gastro-esophageal reflux disease with esophagitis, without bleeding (principal); R13.10 Dysphagia, unspecified; R19.8 Other specified symptoms and signs involving the digestive system and abdomen
CPT/HCPCS: 99204

== ENCOUNTER 2023-08-17 08:44 | Outpatient (AMB) | payer BC, SELFPAY ==
--- NOTE | 2023-08-17 08:59 | MHC.PC.OV ---
Intake Visit Reasons: Discuss Results~ [phone] Allergies No Known Allergies Allergy (Verified 08/17/23 08:59) Medication List - Last Reconciled 08/17/23 by Starr Licea MD bisacodyl (Dulcolax (bisacodyl)) 20 mg (4 x 5 mg) PO ONCE PRN 1 day famotidine 40 mg PO DAILY 30 days polyethylene glycol 3350 (Miralax) 238 grams PO ONCE PRN 1 day sucralfate 1 g (10 mL) PO QIDACHS 4 weeks Tobacco use date assessed: 08/17/23 Dental Screening Dental Screen Date: 07/11/23 Did you have a dental visit in the last 12 months?: Yes Did you have a dental problem in the last 6 months where you did not have access to dental care?: No Was dental information given to patient?: Patient has dentist HPI Discuss Results~ [phone] HPI Details this is a telemed visit Patient wanted to go over her labs CBC is WNL Kidney function, liver enzymes are Normal LDL is 135, she also have elevated HDL TSH is normal Vit D is still pending patient was given time to ask questions [facility] Medical History Degenerative joint disease (DJD) of lumbar spine GERD (gastroesophageal reflux disease) Difficulty swallowing Surgical History Hx of appendectomy Family History Father No problems noted. Maternal Grandfather Coronary atherosclerosis of bypass graft Paternal Grandfather Diabetes Social History Household Members: Family and Children Household Members Other:: mother & son Housing: House Are you a primary hospice care transitions coordinator to a significant other at home: Yes (son is a minor) Do you presently have visiting nurse or other home services: No Alcohol intake: never Patient Tobacco Use Status: Never used Tobacco e-Cigarette/Vaping Use: Never Used Second Hand Smoke Exposure: No service: Yes Current occupational status: employed Current occupation: [employer] Cognitive needs: No Hearing needs: No Vision needs: Yes Female Reproductive History Menstrual Age of Menarche: 14 Questionnaire Thrive Questionnaire Date Thrive assessed: 07/11/23 AUDIT C Alcohol Use Questionnaire (AUDIT-C) 1. How often do you have a drink containing alcohol?: Never 3. How often do you have six or more drinks on one occasion?: Never Total Score: 0 Score Reviewed/Action Taken: Yes REMA-7 AMB Questionnaire REMA-7 Date REMA - 7 assessed: 07/11/23 Source: Developed by Drs. Gregory Montero, Sushma Rosenberg, Nikos Santiago and colleagues, with an educational bin from [employer]. Review of Systems Const Denies chills and Denies fever(s) ENT Denies epistaxis and Denies nasal discharge Card Denies chest pain Resp Denies chest congestion, Denies cough and Denies hemoptysis GI Denies diarrhea and Denies nausea Skin/Breast Denies rash Neuro Reports no additional complaints Psych Reports no additional complaints Endo Reports no additional complaints Physical exam (Primary Care) Tobacco/Smoking Status: Tobacco use Status Tobacco use date assessed 08/17/23 08/17/23 09:00 Patient Tobacco Use Status Never used Tobacco 08/17/23 09:00 e-Cigarette/Vaping Use Never Used 08/17/23 09:00 Thrive Assessment: Date of Thrive Assessment Date Thrive assessed 07/11/23 08/17/23 09:00 Assessment and Plan Assessment & Plan (1) Acid reflux: Code(s): K21.9 - Gastro-esophageal reflux disease without esophagitis Qualifiers: Esophagitis presence: with esophagitis Esophagitis bleeding: unspecified whether hemorrhage Qualified Code(s): K21.00 - Gastro-esophageal reflux disease with esophagitis, without bleeding Plan this is a telemed visit Patient wanted to go over her labs CBC is WNL Kidney function, liver enzymes are Normal LDL is 135, she also have elevated HDL TSH is normal Vit D is still pending patient was given time to ask questions Coding Level of Care Code Tele Est Pt Level 3 (21627) Diagnoses Gastroesophageal reflux disease with esophagitis, unspecified whether hemorrhage K21.00 Esophagitis presence: with esophagitis Esophagitis bleeding: unspecified whether hemorrhage
== END 2023-08-17 13:44 | disposition home or self-care (01) ==
LOC: HO.HMGC 08:44
PROVIDERS: PCP Internal Medicine; Visit Provider Internal Medicine
DX: K21.00 Gastro-esophageal reflux disease with esophagitis, without bleeding (principal)
CPT/HCPCS: 99441

== ENCOUNTER 2023-08-17 11:12 | Outpatient (REF) | payer BC, SELFPAY | END 2023-08-17 11:13 | disposition home or self-care (01) | LOC: HO.LNP 11:12 | PROVIDERS: Visit Provider Physician Assistant | DX: A04.8 Other specified bacterial intestinal infections (principal) | CPT/HCPCS: 87338 ==

== ENCOUNTER 2023-10-16 08:09 | Outpatient (REF) | payer BC, SELFPAY ==
--- NOTE | ~2023-10-16 | FL_ITS ---
EXAMINATION: XR FLUOROSCOPY UPPER GI WITH AIR CLINICAL INFORMATION: Reflux. Dysphagia. COMPARISON: Modified barium swallow 03/09/2020. TECHNIQUE: Fluoroscopic air contrast upper GI examination was performed utilizing standard techniques with thin and thick barium and effervescent granules. Numerous spot images were obtained. FINDINGS: Lateral cine images of the oropharynx and hypopharynx demonstrate normal swallow mechanism with normal epiglottic inversion and soft palate elevation. No tracheal penetration, glottic or subglottic aspiration identified. No nasopharyngeal reflux present. Hypopharyngeal structures appear normal without evidence of mass or diverticulum. There was no significant cricopharyngeal achalasia. Dual and single contrast images of the esophagus demonstrate normal caliber, contour, and mucosal pattern. No evidence of mass or ulcerations identified. Esophageal peristalsis was normal. There is mild narrowing of the GE junction. No evidence of hiatus hernia identified. No significant gastroesophageal reflux was seen during the course of the examination and on reflux views. Dual contrast and single contrast images of the stomach demonstrated a normal contour. The gastric rugal folds have a mildly thickened appearance. No masses or ulcerations are noted. There are a few small areas of contrast pooling in the fundus of the stomach that may present small superficial aphthous ulcers. Contrast freely passed into the gastric antrum and duodenal bulb without delay. Single and air-contrast images of the duodenal bulb demonstrates flattening and elongation, in a cloverleaf-type configuration. The duodenal sweep has a normal appearance, course, and mucosal fold appearance. The imaged proximal jejunum has a normal fold pattern and caliber. FLUOROSCOPY TIME: 4 minutes 50 seconds Number of Spot Images: 7 Number of Cine: 17 DOSE AREA PRODUCT: 2767 uGy-m2 (microgray-meter squared) FL/FL upper GI w air IMPRESSION: 1. Mild narrowing of the GE junction that may represent achalasia or a benign stricture. Recommend correlation with EGD 2. Mildly thickened gastric rugal folds. In addition there are a few small areas of contrast pooling in the fundus of the stomach. These findings are suggestive of erosive gastritis. Recommend correlation with EGD. 3. [place]anson configuration of the duodenal bulb may be secondary to scarring from prior peptic disease. This procedure was performed by Ranjit Berg PA-C, and supervised by Dr. Davis
== END 2023-10-16 08:10 | disposition home or self-care (01) ==
LOC: HO.XRAY 08:09
PROVIDERS: PCP Internal Medicine; Visit Provider Physician Assistant
DX: R13.10 Dysphagia, unspecified (principal); K21.00 Gastro-esophageal reflux disease with esophagitis, without bleeding
CPT/HCPCS: 74246

== ENCOUNTER → 2023-10-16 08:11 | Outpatient (BNV) | payer BC, SELFPAY | PROVIDERS: PCP Internal Medicine; Visit Provider Physician Assistant Surgical | DX: R13.10 Dysphagia, unspecified (principal); K21.9 Gastro-esophageal reflux disease without esophagitis | CPT/HCPCS: 74246 ==

== ENCOUNTER 2023-10-18 10:50 | Day surgery (SDC) | payer BC, SELFPAY ==
[2023-10-16 14:06] VITALS: BMI 30.7
--- NOTE | 2023-10-16 14:28 | HO.ANESPROP2 ---
Documented by User: Leonela Ramirez NP 10/16/23 14:29 HPI - Anesthesia Eval Consult details Narrative: 38yo F for Upper Endoscopy and Colonoscopy PMF Active Problems Active Problems: All Active Problems Change in bowel function (Acute) Difficulty swallowing solids (Acute) Endometrial polyp (Acute) Pelvic pain in female (Acute) Encounter for annual routine gynecological examination (Acute) Acid reflux (Acute) Encounter for routine gynecological examination (Acute) Abnormal MRI, lumbar spine (Acute) Neural foraminal stenosis of lumbar spine (Acute) Herniated nucleus pulposus, lumbar (Acute) Lumbar pain (Acute) Degenerative joint disease (DJD) of lumbar spine (Acute) Obesity due to excess calories (Acute) Encounter for general adult medical examination with abnormal findings (Acute) Lumbar pain (Acute) Difficulty swallowing (Acute) Past Medical History Medical History Degenerative joint disease (DJD) of lumbar spine GERD (gastroesophageal reflux disease) Difficulty swallowing Family History Family History Father No problems noted. Maternal Grandfather Coronary atherosclerosis of bypass graft Paternal Grandfather Diabetes Family history of problems with anesthesia: No Surgical History Surgical History History of dilatation and curettage Hx of appendectomy History of Problems with Anesthesia: No Social History Social History Household Members: Family and Children Household Members Other:: mother & son Housing: House Are you a primary primary care pediatrician to a significant other at home: Yes (son is a minor) Do you presently have visiting nurse or other home services: No Alcohol intake: never Patient Tobacco Use Status: Never used Tobacco e-Cigarette/Vaping Use: Never Used Second Hand Smoke Exposure: No Use of substances other than those prescribed or required for medical reasons: No Are you DNR?: No Advance Directives: No Advance Directives Information Provided: Yes Patient : No (UCG pending) service: Yes Current occupational status: employed Current occupation: [employer] Cognitive needs: No Hearing needs: No Vision needs: Yes Meds Allergies Allergy/AdvReac Type Severity Reaction Status Date / Time No Known Allergies Allergy Verified 08/17/23 08:59 Exam Height,Weight and Vital Signs: Height 5 ft 7 in Weight 88.904 kg Pertinent Lab Results Pertinent Lab Results: Laboratory Tests 08/14/23 06:13 WBC 6.6 Hgb 13.5 Hct 39.7 Plt Count 228 Sodium 141 Potassium 4.1 Chloride 107 Carbon Dioxide 24 BUN 17 H Creatinine 0.92 Assessment and Plan Assessment Anesthesia Assessment: Chart Reviewed Final Anesthetic Review Family History of Problems with Anesthesia: No History of Problems with Anesthesia: No Documented by User: Yulissa Clancy MD 10/18/23 12:26 [facility] Past Medical History Medical History Degenerative joint disease (DJD) of lumbar spine GERD (gastroesophageal reflux disease) Difficulty swallowing Family History Family History Father No problems noted. Maternal Grandfather Coronary atherosclerosis of bypass graft Paternal Grandfather Diabetes Surgical History Surgical History History of dilatation and curettage Hx of appendectomy Social History Social History Household Members: Family and Children Household Members Other:: mother & son Housing: House Are you a primary primary care pediatrician to a significant other at home: Yes (son is a minor) Do you presently have visiting nurse or other home services: No Alcohol intake: never Patient Tobacco Use Status: Never used Tobacco e-Cigarette/Vaping Use: Never Used Second Hand Smoke Exposure: No Use of substances other than those prescribed or required for medical reasons: No Are you DNR?: No Advance Directives: No Advance Directives Information Provided: Yes Patient : No (UCG pending) service: Yes Current occupational status: employed Current occupation: [employer] Cognitive needs: No Hearing needs: No Vision needs: Yes Meds Allergies Allergy/AdvReac Type Severity Reaction Status Date / Time No Known Allergies Allergy Verified 08/17/23 08:59 Exam Airway Mallampati Class: II TM Dist: >3cm Neck ROM: Full Loose/Missing/Broken Teeth: No Heart: RRR Lungs: CTA Assessment and Plan Assessment Anesthesia Assessment: Anesthesia Plan Discussed Final Anesthetic Review NPO: Yes ASA Class: II Final Preanesthetic Review: Meds/Allgs Chart Reviewed, Consent Obtained/Reviewed and Anes Risks/Benef Reviewed Patient Risk: Low Procedure Risk: Intermediate Anesthetic Plan Anesthetic Plan: MAC: Disposition: Standard PACU
[2023-10-18 11:27] VITALS: BMI 30.1
[2023-10-18 11:47] VITALS: BP 124/76; PULSE 62; RESP 16; TEMP 37.1; O2SAT 100
[2023-10-18] MEDS: Lactated Ringers 1,000 ML 100 ML IVCONT (12:02)
[2023-10-18 12:16] LABS: UPreg QC Valid YES; Urine Pregnancy NEGATIVE (NEGATIVE)
--- NOTE | 2023-10-18 12:24 | P.HPSUR_ITS ---
Pre-Procedural Eval Section A - 24 Hr Update-Section A only Date of Service: 10/18/23 Section B - Complete if H&P > 30 days Chief Complaint: Other specified symptoms and signs involving the Details of Present Illness: dysphagia and FH of polyps Relevant Family History (Specify if Yes): Yes Relevant Social History: None Present Medications: see Short Stay Collaborative assessment Medical History: Significant History (Degenerative joint disease (DJD) of lumbar spine GERD (gastroesophageal reflux disease) Difficulty swallowing) History of Previous Operations: Relevant previous surgery/procedure and date(s) (History of dilatation and curettage Hx of appendectomy) Allergies: Allergies Allergy/AdvReac Type Severity Reaction Status Date / Time No Known Allergies Allergy Verified 08/17/23 08:59 Review of Systems Sugical H&P ROS: Negative: Constitution, Cardiovascular, Respiratory, Neurological, Psychiatric, Hem-Onc, Allergic/Immunologic, Gastrointestinal, Genitourinary, Musculoskeletal, Integumentary, Endocrine and Eyes/Ears/ Nose/Throat Exam Surgical H&P Exam: Normal: HEENT, Normal: Heart, Normal: Lungs, Normal: Extremities, Normal: Abdomen, Normal: Skin and Normal: Neurological Plan Diagnosis/Plan: Unchanged I have reviewed the history and physical and performed a pertinent physical examination on my patient. No changes have occurred unless specified. Time Spent With Patient Time: Total time managing care of this patient today ____ minutes.
--- NOTE | 2023-10-18 13:08 | HO.OPN-COLON ---
Colonoscopy Operative Note Operative Note Date of Service: 10/18/23 Narrative: Operative Information Procedure Description: EGD, Colonoscopy Indication: GERD and screening, FH of polyps Anesthesia: MAC FLEXIBLE TRANSORAL UPPER GASTROINTESTINAL ENDOSCOPY AND COLONOSCOPY PROCEDURE NOTE UPPER ENDOSCOPY Consent: Indications for the procedure and potential complications of bleeding, perforation, reaction to medications and missed diagnosis were discussed with the patient and informed consent was obtained. Instrument: Olympus GIF H 190 J mid size upper endoscope Monitoring: Vital signs and clinical assessment, continuous EKG monitoring, Pulse oximetry, Carbon Dioxide monitoring and blood pressure monitoring were done throughout the procedure. Procedure: The patient was placed in the left lateral decubitis position and pre-procedure medications were administered and a bite block was placed. The endoscope was inserted into the mouth and advanced under direct vision to the third part of duodenum. A careful inspection was made as the upper endoscope was withdrawn including a retroflexed examination of the proximal stomach; Findings and interventions are described below. Findings: Larynx:normal Esophagus: GE junction at 37 cm, diaphragm hiatus at 37 cm, mild esophagitis with edema and erythema at GEJ, bx taken as well as from distal and proximal areas Stomach: mild erythema. Biopsies were obtained. Grade 2 flap valve on retroflexed examination of the cardia. Duodenum: Normal bulb and descending duodenum, Intervention: Biopsies as noted above, COLONOSCOPY Instrument: Olympus variable stiffness pediatric scope 190L Colonoscopy Monitoring: Vital signs and clinical assessment, continuous EKG monitoring, Pulse oximetry, Carbon Dioxide monitoring and blood pressure monitoring were done throughout the procedure. Colon withdrawal time was 11 minutes. Procedure: The patient was placed in the left lateral decubitis position and pre-procedure medications were administered. After a digital rectal examination of the ano-rectum, the video colonoscope was inserted into the rectum and advanced through the colon to the cecum/TI. The colonoscope was slowly withdrawn in a retrograde panoramic fashion and the colon mucosa was carefully examined including a retroflexed view of the rectum. Findings and interventions are described below. Procedure Difficulty:moderate Findings: Terminal Ileum-normal Cecum:normal Right sided retroflexion- normal Ascending Colon: normal Transverse Colon -normal Descending Colon:normal Sigmoid Colon: normal Rectum: Retroflexion with small internal hemorrhoids, grade I Anorectum - normal Colon preparation: [place] Bowel Preparation Scale Right colon; 2 Transverse colon: 2 Left colon; 2 (0 = Unprepared colon segment with mucosa not seen due to solid stool that cannot be cleared. 1 = Portion of mucosa of the colon segment seen, but other areas of the colon segment not well seen due to staining, residual stool and/or opaque liquid. 2 = Minor amount of residual staining, small fragments of stool and/or opaque liquid, but mucosa of colon segment seen well. 3 = Entire mucosa of colon segment seen well with no residual staining, small fragments of stool or opaque liquid) Impression and Post Procedure Diagnosis: Endoscopy Findings: mild esophagitis mild gastritis Colonoscopy Findings: internal hemorrhoids Plan: Await Pathology results Repeat Colonoscopy in 5 years due to FH of polyps or earlier if clinically indicated High fiber diet leaflet avoid straining at stool, epsom salts and sitz bath, anusol supps or cream Above findings were reviewed with the patient and relevant handouts were provided if indicated.
[2023-10-18 13:12] VITALS: BP 99/62; PULSE 58; RESP 18; TEMP 36.6
[2023-10-18 13:27] VITALS: BP 112/62; PULSE 67; RESP 16; TEMP 37.2; O2SAT 100
== END 2023-10-18 13:58 | disposition home or self-care (01) ==
PROVIDERS: Nurse Practitioner; PCP Internal Medicine; Visit Provider Internal Medicine Gastroenterology
PROC: (CPT 45378; principal; 2023-10-18 14:10)
DX: Z12.11 Encounter for screening for malignant neoplasm of colon (principal); Z83.719 Family history of colon polyps, unspecified; K64.0 First degree hemorrhoids; R13.10 Dysphagia, unspecified; K20.80 Other esophagitis without bleeding; K21.9 Gastro-esophageal reflux disease without esophagitis; R19.8 Other specified symptoms and signs involving the digestive system and abdomen; K29.60 Other gastritis without bleeding; K44.9 Diaphragmatic hernia without obstruction or gangrene; M47.816 Spondylosis without myelopathy or radiculopathy, lumbar region; Z98.890 Other specified postprocedural states
CPT/HCPCS: 45378; 43239; 81025; 88305; 88313; 88342; J2250; J2704

== ENCOUNTER → 2023-10-18 10:50 | Outpatient (BNV) | payer BC, SELFPAY | PROVIDERS: PCP Internal Medicine; Visit Provider Internal Medicine Gastroenterology | DX: Z12.11 Encounter for screening for malignant neoplasm of colon (principal); Z83.719 Family history of colon polyps, unspecified; K64.0 First degree hemorrhoids; K21.00 Gastro-esophageal reflux disease with esophagitis, without bleeding; K29.70 Gastritis, unspecified, without bleeding | CPT/HCPCS: 43239; 45378 ==

== ENCOUNTER 2023-11-09 08:14 | Outpatient (AMB) | payer BC, SELFPAY ==
--- NOTE | 2023-11-09 08:21 | MHC.PC.OV ---
Intake Visit Reasons: Discuss Med~ [phone] Allergies No Known Allergies Allergy (Verified 11/09/23 08:21) Medication List - Last Reconciled 11/09/23 by Starr Licea MD famotidine 40 mg PO DAILY 30 days Tobacco use date assessed: 11/09/23 Dental Screening Dental Screen Date: 11/09/23 Did you have a dental visit in the last 12 months?: Yes Did you have a dental problem in the last 6 months where you did not have access to dental care?: No Was dental information given to patient?: Patient has dentist HPI Discuss Med~ [phone] HPI Details Patient had colonoscopy and EGD had questions regarding these procedures Dr Ibarra who performed the procedure states next Colon screening will be in 5 years he also wanted patient to take PPI high dose but med was not sent she is taking Pepcid with good control of symptoms i have sent PPI for the patient she may continue both until her visit with Gastro [facility] Medical History Degenerative joint disease (DJD) of lumbar spine GERD (gastroesophageal reflux disease) Difficulty swallowing Surgical History History of dilatation and curettage Hx of appendectomy Family History Father No problems noted. Maternal Grandfather Coronary atherosclerosis of bypass graft Paternal Grandfather Diabetes Social History Household Members: Family and Children Household Members Other:: mother & son Housing: House Are you a primary post acute care nurse to a significant other at home: Yes (son is a minor) Do you presently have visiting nurse or other home services: No Alcohol intake: never Patient Tobacco Use Status: Never used Tobacco e-Cigarette/Vaping Use: Never Used Second Hand Smoke Exposure: No service: Yes Current occupational status: employed Current occupation: [employer] Cognitive needs: No Hearing needs: No Vision needs: Yes Female Reproductive History Menstrual Age of Menarche: 14 Questionnaire Thrive Questionnaire Date Thrive assessed: 07/11/23 AUDIT C Alcohol Use Questionnaire (AUDIT-C) 1. How often do you have a drink containing alcohol?: Never 3. How often do you have six or more drinks on one occasion?: Never Total Score: 0 Score Reviewed/Action Taken: Yes REMA-7 AMB Questionnaire REMA-7 Date REMA - 7 assessed: 07/11/23 Source: Developed by Drs. Gregory Montero, Sushma Rosenberg, Nikos Santiago and colleagues, with an educational bin from [employer]formerly [employer]). Review of Systems Const Denies chills and Denies fever(s) ENT Denies epistaxis and Denies nasal discharge Card Denies chest pain Resp Denies chest congestion, Denies cough and Denies hemoptysis GI Denies diarrhea and Denies nausea Skin/Breast Denies rash Neuro Reports no additional complaints Psych Reports no additional complaints Endo Reports no additional complaints Physical exam (Primary Care) Tobacco/Smoking Status: Tobacco use Status Tobacco use date assessed 11/09/23 11/09/23 08:23 Patient Tobacco Use Status Never used Tobacco 11/09/23 08:23 e-Cigarette/Vaping Use Never Used 11/09/23 08:23 Thrive Assessment: Date of Thrive Assessment Date Thrive assessed 07/11/23 11/09/23 08:23 Telehealth Telehealth [facility]health [facility] Location of provider rendering services: practice address Location of patient: address on file Patient Identification confirmed using: Name, : Yes Telehealth method: video Patient verbally consented to treatment: Yes Patient verbally consented to billing insurance company: Yes Patient informed of any privacy concerns related to visit: Yes Minutes spent on Phone/Video with Pt.: 13 Assessment and Plan Assessment & Plan (1) Gastritis: Code(s): K29.70 - Gastritis, unspecified, without bleeding Qualifiers: Gastritis type: other gastritis Chronicity: chronic Gastritis bleeding: without bleeding Qualified Code(s): K29.50 - Unspecified chronic gastritis without bleeding (2) Esophagitis: Code(s): K20.90 - Esophagitis, unspecified without bleeding Plan Patient had colonoscopy and EGD had questions regarding these procedures Dr Ibarra who performed the procedure states next Colon screening will be in 5 years he also wanted patient to take PPI high dose but med was not sent she is taking Pepcid with good control of symptoms i have sent PPI for the patient she may continue both until her visit with Gastro Medications: New esomeprazole magnesium (Nexium) 40 mg PO DAILY 90 caps 0RF Coding Level of Care Code Tele Est Pt Level 3 (93707) Diagnoses Other chronic gastritis without hemorrhage K29.50 Gastritis type: other gastritis Chronicity: chronic Gastritis bleeding: without bleeding Esophagitis K20.90
== END 2023-11-09 10:17 | disposition home or self-care (01) ==
LOC: HO.HMGC 08:14
PROVIDERS: PCP Internal Medicine; Visit Provider Internal Medicine
DX: K29.50 Unspecified chronic gastritis without bleeding (principal); K20.90 Esophagitis, unspecified without bleeding
CPT/HCPCS: 99213

== ENCOUNTER 2024-02-20 07:46 | Outpatient (AMB) | payer BC, SELFPAY ==
--- NOTE | 2024-02-20 07:51 | MHC.OFFVIS ---
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 Doing well with no concerns. Regular monthly menses x5d. Currently is not sexually active. She denies vaginal itching and irritation. STI screening offered; she declined. She tries to eat healthy and stays active with exercise. Denies family history of breast, ovarian or colon cancer. Last pap smear 2021, negative. [facility] Medical History Degenerative joint disease (DJD) of lumbar spine GERD (gastroesophageal reflux disease) Difficulty swallowing Surgical History History of dilatation and curettage Hx of appendectomy Family History Father No problems noted. Maternal Grandfather Coronary atherosclerosis of bypass graft Paternal Grandfather Diabetes Social History Household Members: Family and Children Household Members Other:: mother & son Housing: House Are you a primary child care centre director to a significant other at home: Yes (son is a minor) Do you presently have visiting nurse or other home services: No Alcohol intake: never Patient Tobacco Use Status: Never used Tobacco e-Cigarette/Vaping Use: Never Used Second Hand Smoke Exposure: No service: Yes Current occupational status: employed Current occupation: [employer] Cognitive needs: No Hearing needs: No Vision needs: Yes Female Reproductive History Menstrual Age of Menarche: 14 Date of last menstrual period: 01/30/24 control method: none Total pregnancies: 1 Full term: 1 Number of Living Children: 1 Date of last pap smear: 01/28/22 Review of Systems Const All systems reviewed & are unremarkable except as noted in HPI and below Reports as per HPI Eyes Reports no additional complaints ENT Reports no additional complaints Card Reports no additional complaints Resp Reports no additional complaints GI Reports as per HPI and Reports no additional complaints Reports as per HPI Musc Reports no additional complaints Skin/Breast Reports as per HPI Neuro Reports no additional complaints Psych Reports no additional complaints Endo Reports no additional complaints Bryant/Lymph Reports no additional complaints Aller/Immun Reports no additional complaints Physical Exam Const General: cooperative, healthy appearing, no acute distress, well developed and alert Orientation/consciousness: patient oriented x3 HEENT Head: Yes normal to inspection Eyes General: appearance normal, both eyes and all related structures Neck Neck: Yes normal visual inspection Thyroid: Thyroid normal Chest Chest palpation & inspection: normal inspection of the chest and other (no puckering, dimpling, peau de orange, retraction, discharge, masses) Breast/axilla inspection: normal inspection of the breasts Breast/axilla palpation: normal palpation of the breasts Resp Effort & Inspection: normal respiratory effort GI Inspection: Yes normal to inspection Palpation (GI): Soft to palpation Rectal Exam - Female: deferred General: Yes bladder normal to palpation External Female Exam: normal external appearance and normal appearance of the urethra Speculum Exam - Vagina: normal appearance of the vagina, normal palpation and normal vaginal discharge Speculum Exam - Cervix: normal appearance of the cervix and normal palpation Bimanual exam- vagina & uterus: normal bimanual exam, normal palpation, uterine size normal, bladder normal to palpation, normal palpation and non-tender Bimanual Exam- Adnexa, other: no masses Skin General skin exam: no rashes or lesions noted Rashes: no rashes Neuro General: patient oriented x3 Cognition (Neuro): normal cognition Extrem General: Yes normal to inspection Psych Attitude: cooperative Thought process: Normal thought process present Assessment & Plan Assessment & Plan (1) Encounter for annual routine gynecological examination: Code(s): Z01.419 - Encounter for gynecological examination (general) (routine) without abnormal findings Category: Medical Plan Discussed: Current recommendations for pap smears per ASCCP guidelines. Breast awareness and periodic breast exams. Maintain a healthy lifestyle including a well balanced diet and routine exercise. Use condoms for STI and prevention. Patient verbalizes understanding and agrees to the plan of care. She was given opportunity to ask questions and all questions were answered to the best of my ability. 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 This note is constructed using voice recognition software. While every effort has been made to ensure accuracy, electric wirer errors may have been included. Coding Level of Care Code Est Pt Prev Care 18-39y(46297) Diagnoses Encounter for annual routine gynecological examination Z01.419
[2024-02-20 07:52] VITALS: BP 122/72; BMI 29.8
== END 2024-02-20 08:16 | disposition home or self-care (01) ==
PROVIDERS: PCP Internal Medicine; Visit Provider Advanced Practice Midwife
DX: Z01.419 Encounter for gynecological examination (general) (routine) without abnormal findings (principal)
CPT/HCPCS: 99395

== ENCOUNTER 2024-07-16 14:17 | Outpatient (AMB) | payer BC, SELFPAY ==
--- NOTE | 2024-07-16 14:20 | A.OFFPC_ITS ---
Vital Signs 07/16/24 14:23 Height 5 ft 7 in Weight 190 lb BMI 29.8 BP 100/70 Blood Pressure Location Rt brachial Position Sitting Respiration 15 Pulse 63 Pulse Source Pulse Oximeter Temp 98.8 F Temp Source Oral Pulse Oximetry (%) 99 Intake Visit Reasons: Annual Physical Intake Note: Pt is here today for her PE Allergies No Known Allergies Allergy (Verified 07/16/24 14:20) Medication List - Last Reconciled 07/16/24 by Starr Licea MD esomeprazole magnesium (Nexium) 40 mg PO DAILY famotidine 40 mg PO DAILY 30 days Tobacco use date assessed: 07/16/24 Dental Screening Dental Screen Date: 07/16/24 Did you have a dental visit in the last 12 months?: Yes Did you have a dental problem in the last 6 months where you did not have access to dental care?: No Was dental information given to patient?: Patient has dentist HPI Annual Physical HPI Details Physical exam appointment Patient is 39 years old female Patient had colonoscopy and EGD last year Dr Ibarra performed the procedure, next Colon screening will be in 5 years - GERD: Patient has been managing sympto ms with Nexium and famotidine. Occas ional missed doses lead to noticeable symptom recurrence, indicating effective control with medication adherence. - Cold Sores: Patient inquires about Talia trex for management. Occurrence approximately three times annually, previously managed with topical Lysine cream. - Vitamin D Deficiency: Previously noted in lab results. Patient not currently taking supplementation despite prior low levels. - Back Pain: History of intervertebral d isc disorder with episodes occurring approximately every two months, lasting about a week. Managed with ice packs, warm packs, and Aleve. Pain can be exacerbated by physical activities such as running races. Health Maintenance - Vaccinations are up to date, confirmed with service history. - Annual blood draw recommended for dimitri toring Vitamin D levels. - Encouragement to begin Vitamin D suppl ementation and re-evaluate levels in a couple of months. - Increased physical activity noted, inc luding participation in running events. Medications - Nexium (indicated for GERD) - Famotidine (indicated for GERD) - Aleve (used occasionally for back pain management) Employment - Currently employed in a new job for tw o years. - service history noted, ensuri ng vaccinations are up to date. Patient Instructions - Continue taking Nexium and famotidine for GERD management. - Obtain Valtrex prescription for cold s ore management as instructed by starting at onset of symptoms. - Begin taking Vitamin D supplementation and follow up with repeat blood work in a couple of months. - Manage back pain episodes with ice, he at packs avoid Aleeve if possible. - Ensure all vaccinations are documented and updated as per service protocols. Review of Systems - General: No fever no chills - Neurological: No headaches no dizzin ess - Ear nose throat: No sore throat no hearing difficulty no ear pain - Cardiovascular: No syncope, no chest pain, no palpitations - Gastrointestinal: No nausea vomiting or diarrhea - Endocrine: No polyuria polydipsia no heat intolerance - Genitourinary: No dysuria - Skin: No new complaints Physical Exam General: Cooperative, healthy appearing, comfortable, no acute distress Orientation: Patient oriented x3 Head: Normal to inspection Ears: Within normal limit visually Nose: Normal external nose present Face and sinus: Normal facial exam Eyes: Appearance normal, extraocular movement intact pupils reactive Neck: Normal visual inspection and supple Respiratory: Normal respiratory effort and able to speak in complete sentences. Clear to auscultation, no stridor Cardiovascular: S1 and S2 RRR breast exam thru Obgyn GI: Normal to inspection. Soft to palpation and nontender Skin: Turgor normal, no acute findings Neuro: Patient oriented x3, motor sensory intact, balance intact, tandem pass Extremities: Normal to inspection, no knee pains, PFSH Medical History Degenerative joint disease (DJD) of lumbar spine GERD (gastroesophageal reflux disease) Difficulty swallowing Surgical History History of dilatation and curettage Hx of appendectomy Family History Father No problems noted. Maternal Grandfather Coronary atherosclerosis of bypass graft Paternal Grandfather Diabetes Social History Household Members: Family and Children Household Members Other:: mother & son Housing: House Are you a primary care companion to a significant other at home: Yes (son is a minor) Do you presently have visiting nurse or other home services: No Alcohol intake: never Patient Tobacco Use Status: Never used Tobacco e-Cigarette/Vaping Use: Never Used Second Hand Smoke Exposure: No service: Yes Current occupational status: employed Current occupation: [employer] Cognitive needs: No Hearing needs: No Vision needs: Yes Female Reproductive History Menstrual Age of Menarche: 14 Questionnaire PHQ-9 Over the last 2 weeks, how often have you been bothered by any of the following problems? 1. Little interest or pleasure in doing things: not at all 2. Feeling down, depressed, or hopeless: not at all 3. Trouble falling or staying asleep, or sleeping too much: not at all 4. Feeling tired or having little energy: not at all 5. Poor appetite or overeating: not at all 6. Feeling bad about yourself - or that you are a failure or have let yourself or your family down: not at all 7. Trouble concentrating on things, such as reading the newspaper or watching television: not at all 8. Moving or speaking so slowly that other people could have noticed. Or the opposite - being so fidgety or restless that you have been moving around a lot more than usual: not at all 9. Thoughts that you would be better off or of hurting yourself in some way: not at all Total score: 0 Depression Screening Interpretation: Negative Depression Screening Done: Yes 54856 - PHQ-9 Billing: Yes Source: Developed by Drs. Gregory Montero, Sushma Rosenberg, Nikos Santiago and colleagues, with an educational bin from [employer]. Thrive Questionnaire Date Thrive assessed: 07/16/24 I am a: Patient What is your living situation today?: I have a steady place to live Within the past 12 months, did the food you bought not last and you didn't have the money to get more?: Never true Within the past 12 months, did you worry whether your food would run out before you got money to buy more?: Never true Do you have trouble paying for medicines?: No Do you have trouble getting transportation to medical appointments?: No Do you have trouble paying your heating and electricity bill?: No Do you have trouble taking care of your child, family member or friend?: No Do you have trouble with day-to-day activities such as bathing, preparing meals, shopping, managing finances, etc.?: No Are you currently unemployed and looking for a job?: No Are you interested in more education?: No Please select the resources that you would like help with: None Currently or been in a relationship where the following occur: No concerns reported THRIVE Score: 0 AUDIT C Alcohol Use Questionnaire (AUDIT-C) 1. How often do you have a drink containing alcohol?: Never Total Score: 0 REMA-7 AMB Questionnaire REMA-7 Date REMA - 7 assessed: 07/16/24 Feeling nervous, anxious, or on edge: 0 = Not at all Not being able to stop or control worryin = Not at all Worrying too much about different things: 0 = Not at all Trouble relaxin = Not at all Being so restless that it is hard to sit still: 0 = Not at all Becoming easily annoyed or irritable: 0 = Not at all Feeling afraid as if something awful might happen: 0 = Not at all Total REMA-7 score (0-4 normal; 5-9 mild; 10-14 moderate; 15-21 severe): 0 Source: Developed by Drs. Gregory Montero, Sushma Rosenberg, Nikos Santiago and colleagues, with an educational bin from [employer]. REMA-7 Assessment Billing REMA-7 Assessment Tool: REMA-7 Assessment 15149 Physical exam (Primary Care) Vital Signs: Last Vital Signs Temp 98.8 F 07/16/24 14:23 Pulse 63 07/16/24 14:23 Resp 15 07/16/24 14:23 BP 100/70 07/16/24 14:23 Pulse Ox 99 07/16/24 14:23 BMI result Body Mass Index 29.8 Tobacco/Smoking Status: Tobacco use Status Tobacco use date assessed 07/16/24 07/16/24 14:22 Patient Tobacco Use Status Never used Tobacco 07/16/24 14:22 e-Cigarette/Vaping Use Never Used 07/16/24 14:22 PHQ-9: PHQ-9 Score PHQ-9: Total score 0 07/16/24 14:22 Depression Screening Interpretation: Negative Thrive Assessment: Date of Thrive Assessment Date Thrive assessed 07/16/24 07/16/24 14:22 Currently or been in a relationship where the following occur: No concerns reported Coding Level of Care Code Est Pt Level 3 (57919) Est Pt Prev Care 18-39y(12254) Diagnoses Encounter for general adult medical examination with abnormal findings Z00.01 Recurrent herpes simplex B00.9 Esophagitis K20.90 Herniated nucleus pulposus, lumbar M51.26 Additional Codes PHQ-9 - 70248 - PHQ-9 Billing: Yes ([id number]) REMA-7 Assessment Billing - REMA-7 Assessment Tool: REMA-7 Assessment 59003 ([id number]) Assessment & Plan Assessment & Plan (1) Encounter for general adult medical examination with abnormal findings: Code(s): Z00.01 - Encounter for general adult medical examination with abnormal findings Category: Medical (2) Recurrent herpes simplex: Code(s): B00.9 - Herpesviral infection, unspecified Category: Medical (3) Esophagitis: Code(s): K20.90 - Esophagitis, unspecified without bleeding Category: Medical (4) Herniated nucleus pulposus, lumbar: Code(s): M51.26 - Other intervertebral disc displacement, lumbar region Category: Medical Plan Physical exam appointment Patient is 39 years old female Patient had colonoscopy and EGD last year Dr Ibarra performed the procedure, next Colon screening will be in 5 years - GERD: Patient has been managing symptoms with Nexium and famotidine. Occasional missed doses lead to noticeable symptom recurrence, indicating effective control with medication adherence. - Cold Sores: Patient inquires about Valtrex for management. Occurrence approximately three times annually, previously managed with topical Lysine cream. - Vitamin D Deficiency: Previously noted in lab results. Patient not currently taking supplementation despite prior low levels. - Back Pain: History of intervertebral disc disorder with episodes occurring approximately every two months, lasting about a week. Managed with ice packs, warm packs, and Aleve. Pain can be exacerbated by physical activities such as running races. Health Maintenance - Vaccinations are up to date, confirmed with service history. - Annual blood draw recommended for monitoring Vitamin D levels. - Encouragement to begin Vitamin D supplementation and re-evaluate levels in a couple of months. - Increased physical activity noted, including participation in running events. Medications - Nexium (indicated for GERD) - Famotidine (indicated for GERD) - Aleve (used occasionally for back pain management) Employment - Currently employed in a new job for two years. - service history noted, ensuring vaccinations are up to date. Patient Instructions - Continue taking Nexium and famotidine for GERD management. - Obtain Valtrex prescription for cold sore management as instructed by starting at onset of symptoms. - Begin taking Vitamin D supplementation and follow up with repeat blood work in a couple of months. - Manage back pain episodes with ice, heat packs avoid Aleeve if possible. - Ensure all vaccinations are documented and updated as per service protocols. Orders: Orders Comprehensive Anderson. Panel Fast Today B00.9 - Herpesviral infection, unspecified, K20.90 - Esophagitis, unspecified without bleeding, Z00.01 - Encounter for general adult medical examination with abnormal findings, Z01.419 - Encounter for gynecological examination (general) (routine) without abnormal findings Vitamin D 25-OH (D2 and D3) Today B00.9 - Herpesviral infection, unspecified, K20.90 - Esophagitis, unspecified without bleeding, Z00.01 - Encounter for general adult medical examination with abnormal findings, Z01.419 - Encounter for gynecological examination (general) (routine) without abnormal findings TSH reflex Free T4 Today B00.9 - Herpesviral infection, unspecified, K20.90 - Esophagitis, unspecified without bleeding, Z00.01 - Encounter for general adult medical examination with abnormal findings, Z01.419 - Encounter for gynecological examination (general) (routine) without abnormal findings Complete Blood Count Auto Diff Today B00.9 - Herpesviral infection, unspecified, K20.90 - Esophagitis, unspecified without bleeding, Z00.01 - Encounter for general adult medical examination with abnormal findings, Z01.419 - Encounter for gynecological examination (general) (routine) without abnormal findings Lipid Panel Today B00.9 - Herpesviral infection, unspecified, K20.90 - Esophagitis, unspecified without bleeding, Z00.01 - Encounter for general adult medical examination with abnormal findings, Z01.419 - Encounter for gynecological examination (general) (routine) without abnormal findings Medications: New valacyclovir 1,000 mg PO BID 15 days 30 tabs 0RF
[2024-07-16 14:23] VITALS: BP 100/70; PULSE 63; RESP 15; TEMP 37.1; O2SAT 99; BMI 29.8
--- OUTSIDE RECORDS SUMMARY | 2024-07-16 17:09 | XMS_ITS ---
Author Name [facility] [place] [facility] [place] Address [address] [place] [address] Care Team Providers Care Intellectual Property Lawyer Name Role Phone FUNMI AMOS Primary Care Provider Unavailabl e Insurance Providers: All historical and current Section Date Range: From patient's date of to the date document was created. This section includes the names of all active insurance providers for the patient. Insurance Provider Type of Coverage Plan Name Start of Policy Coverage End of Policy Coverage Group Number Member ID Insurance Provider's Telephone Number Policy Prajapati's Name Patient's Relationship to Policy Prajapati [place] PREFERRED PROVIDER ORGANIZAT ION (PPO) BASIC SELF PLUS ONE Oct 09, 2022 [id number] QI DANG [facility] [place] EP BCBS PRESCRIPT ION FEP [place] ARK Oct 09, 2022 [id number] QI DANG [facility] Selected Encounter This section includes the information on record at [place] for the Encounter. Date/Time Encounter Type Encounter Description Reason Pro vider Source Jul 11, 2024 04:22 PM Outpatient Encounter PRIMARY CARE/MEDICINE I[facility] Encounter Template Text not used by [place] Plan of Treatment: Future Appointments (+ 6 months) and Future Tests (+/- 45 days) The Plan of Treatment section includes future care activities for the patient from all [facility] treatmentfacilities. This section includes future appointments and future orders which are active, pending or scheduled. Future Appointments This section includes appointments that were scheduled to occur 6 months from the date of the Encounter, up to a maximum of 20 appointments. The data comes from all [place] treatment facilities. Appointment Date/Time Appointment Type Appointme nt Facility Name Nov 18, 2024 08:30 AM AMBULATORY - MEDICINE [facility] Social History: Smoking Status (Most current) and Tobacco Use (All prior to encounter date) This section includes the most current, and the historical, smoking and tobacco- related health factors from the [facility] facility where the Encounter took place. Current Smoking Status This section includes the most current smoking, or tobacco-related health factor, from the [place] facility where the Encounter took place. Date/Time Current Smoking Status Comment Facil ity Nov 20, 2023 02:44 PM VA-TOBACCO NEVER USED [place] [facility] [place] [facility] Encounter Notes: All associated encounter notes This section contains the clinical notes associated to the Encounter. Date/Time Encounter Note(s) Provider Source Jul 11, 2024 04:22 PM LETTERS: LOCAL TITLE: PATIENT LETTER (B) STANDARD TITLE: LETTERS DATE OF NOTE: JUL 11, 2024@16:22 ENTRY DATE: JUL 11, 2024@16:23:14 AUTHOR: MICHELLE TATE EXP COSIGNER: URGENCY: STATUS: [place] [address] [phone] * LISBETH DANG [address], [place] [address] Date: JUL 11, 2024 Dear : Thank you for choosing [facility] as your primary choice for health care. As a partner in your health care, we are attempting to contact you because we have been unsuccessful in reaching you by phone. We want to assure you that we are doing everything possible to schedule veterans for their appointments. Please call us at to speak with a staff member who can assist you with securing an appointment. Thank you for your service and we look forward to hearing from you soon. Sincerely; [facility] [address] [place] [phone] Upcoming Appointments: 11/18/2024 08:30 SPR PACT 7 AWNING CRAFTSPERSON MICHELLE TATE [place]
--- OUTSIDE RECORDS SUMMARY | 2024-07-16 17:09 | XMS_ITS | Continuity of Care Document ---
Author Name [facility] Organization [facility] Care Team Providers Care Rda Name Role Phone [facility] Unavailable Unavailable Problems Combined list of problems from Department of Defense and Veterans Affairs facilities. It does not include entries that were removed or entered in error. 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 Adult screening status Active Condition Nov 22, 2023 Entered By: FUNMI AMOS Comment: colonscopy 10/19/23 - normal, repeat 5 yearsAug 2023 Entered By: FUNMI AMOS Comment: EGD 10/19/23 - inflammation, no esophageal strictureAug 2023 Entered By: FUNMI AMOS Comment: pap 02/01/23 normalAug 2023 Entered By: FUNMI AMOS Comment: HIV, Hep C screening 11/25/2017 negative [facility] Allergic rhinitis due to pollen Active Condition [place] Bilateral tinnitus Active Condition [facility] [place] Chronic gastritis Active Condition [place] 2023 Entered By: FUNMI AMOS Comment: with GERD, esophagitis, oral dysphagia.Nov 22, 2023 Entered By: FUNMI AMOS Comment: EGD showed no stricture 10/19/23 [facility] Degeneration of lumbar intervertebral disc Active Condition Nov 22, 2023 Entered By: FUNMI AMOS Comment: hx herniated lumbar disc [facility] Exposure to potentially hazardous substance Active Condition Nov 22, 2023 Entered By: FUNMI AMOS Comment: burn pits [place] - on registry [facility] Family medical history Active Condition Nov 22, 2023 Entered By: FUNMI AMOS Comment: mother - colon polyps, no cancerAug 2023 Entered By: FUNMI AMOS Comment: father - healthyNov 22, 2023 Entered By: FUNMI AMOS Comment: paternal grandfather - DM2Aug 2023 Entered By: FUNMI AMOS Comment: maternal grandfather - [place], CABG d/t CAD [facility] [place] [facility] Gardnerella vaginitis Active Condition [facility] History of surgery Active Condition A ug 2023 Entered By: FUNMI AMOS Comment: appendectomy 2023 Entered By: FUNMI AMOS Comment: removal of endometrial polypsNov 22, 2023 Entered By: FUNMI AMOS Comment: colposcopy [facility] [place] [facility] Obesity Active Condition Nov 21 Entered By: FUNMI AMOS Comment: 11/20/23 BMI 31 [facility] Seasonal allergy Active Condition [facility] [place] [facility] Under care of multiple providers Active Condition Nov 21 Entered By: FUNMI AMOS Comment: community PCP - Starr Tob[facility]in 2023 Entered By: FUNMI AMOS Comment: KUNAL - Starla Castellanos 2023 Entered By: FUNMI AMOS Comment: [facility] CH[facility] Entered By: FUNMI AMOS Comment: [facility] visit for: administrative purpose Inactive Condition DoD PTERYGIUM RIGHT EYE NASAL Active Condition DoD BACK STRAIN LUMBAR Inactive Condition B ACK STRAIN LUMBAR: Rest back, no running for 10 days, take motrin with food/ milk to avoid GI upset, heat/ice for 20 min 3 times a day using a towel between skin and ice/heat. use back streaches provided, restart workout slowly after pain has gone away. DoD BLEPHARITIS Active Condition DoD ASSESSMENT OF PATIENT CONDITION WORK-RELATED Active Condition DoD visit for: services physical pre-deployment Inactive Condition visit for: services physical pre-deployment (INITIAL POST-DEPLOYMEN T ASSESSMENT: DOCUMENTED ON [id number]) DoD Contraceptives Active Condition DoD PINGUECULITIS Active Condition DoD CERVICAL DYSPLASIA: MILD Active Condition DoD Pap Smear (+) Low Grade Squamous Intraepithelial Lesion Active Condition DoD Gynecologic Services Contraceptive Management Inactive Condition DoD ROUTINE GYNECOLOGICAL EXAM WITH CERVICAL PAP SMEAR Inactive Condition DoD EUSTACHIAN TUBE DYSFUNCTION Active Condition DoD OTITIS MEDIA BOTH EARS Active Condition DoD EARACHE BOTH EARS Inactive Condition DoD bloody discharge from the ears Inactive Condition DoD TYMPANIC MEMBRANE PERFORATION BOTH EARS Inactive Condition DoD Need For Prophylactic Antibiotics Inactive Condition DoD BACTERIAL VAGINOSIS Inactive Condition DoD visit for: screening exam venereal disease Inactive Condition DoD visit for: contraceptive surveillance pill Inactive Condition DoD visit for: screening exam malignant neoplasm breast Inactive Condition DoD Pelvic Exam (Internal) Inactive Condition DoD Body Mass Index Inactive Condition DoD OVERWEIGHT Inactive Condition DoD Patient Education - Dietary Inactive Condition DoD HORDEOLUM INTERNUM RIGHT EYE Active Condition DoD Vaccines Prophylactic Need Against Smallpox Inactive Condition DoD Outpatient Physician Consultation Inactive Condition DoD ADJUSTMENT DISORDER WITH ANXIETY AND DEPRESSED MOOD Active Condition DoD Patient Education - Injury Prevention Inactive Condition DoD UPPER RESPIRATORY INFECTION Inactive Condition [facility] Patient Counseling: Inactive Condition DoD visit for: ears / hearing exam Active Condition [facility] visit for: occupational health / fitness exam Inactive Condition [facility] Patient Counseling: Inquiry & Counseling Inactive Condition [facility] visit for: routine eye exam Inactive Condition DoD Removal Of Sutures Inactive Condition Do D visit for: follow-up exam Inactive Condition DoD NEOPLASM - SOFT TISSUE KNEE LEFT Inactive Condition DoD visit for: screening exam eye disorders Inactive Condition DoD NEOPLASM - SOFT TISSUE TYPES ADIPOSE TISSUE LIPOMA Inactive Condition DoD ASTIGMATISM - REGULAR Active Condition DoD REFRACTIVE ERROR - MYOPIA Active Condition [facility] visit for: services physical Active Condition [facility] visit for: services physical accession Inactive Condition [facility] Diagnosis: ICD-10-CM K20.90 Esophagitis, unspecified without bleeding Active Diagnosis [facility] Diagnosis: ICD-10-CM K29.50 Unspecified chronic gastritis without bleeding Active Diagnosis [facility] Medications Combined list of outpatient medications from Department of Defense and Veterans Affairs facilities.Medications provided include 1) outpatient medications from the last 15 months, and 2) patient-reported medications. Medication Details Route Status Patient Instructions Prescription Expires Prescription Number Last Dispense Date Ordering Provider Order Date Order Qty Source cyclobenzap rine 5 mg oral tablet cycloben zaprine 5 mg oral tablet Start Date: 10/13/20 Status: Ordered Repeat number: 1 Ordered 2021 No Facilit y Access ESOMEPRAZOL E MAGNESIUM 40MG CAP,EC TAKE 1 CAPSULE BY MOUTH ONCE DAILY ORAL ACTIVE BETTE,K ENDRA C 2023 [place] FAMOTIDINE 40MG TAB TAKE ONE TABLET BY MOUTH ONCE DAILY FOR STOMACH ACID ORAL ACTIVE 11/20/2024 [id number] Nidia AMOS 2023 90 [place] LORATADINE 10MG TAB TAKE ONE TABLET BY MOUTH ONCE DAILY NEEDED FOR ALLERGY ORAL ACTIVE 11/20/2024 [id number] Nidia AMOS 2023 90 [place] LORATADINE 10MG TAB TAKE ONE TABLET BY MOUTH EVERY DAY NEEDED ORAL ACTIVE TONO MELENDREZ MD 2014 [place] MULTIVITS W/MINERALS TAB/CAP (NO VIT K) TAKE ONE TABLET BY MOUTH EVERY DAY ORAL ACTIVE TONO MELENDREZ MD 2014 [place] NAPROXEN 250MG TAB TAKE ONE TABLET BY MOUTH TWICE DAILY NEEDED FOR PAIN TAKE WITH FOOD ORAL ACTIVE 11/20/2024 [id number] 4 Nidia AMOS 2023 180 [place] norethindro ne 0.35 mg oral tablet norethin drone 0.35 mg oral tablet Start Date: 05/04/20 Status: Ordered Repeat number: 1 Ordered 2021 No Facilit y Access norethindro ne 0.35 mg oral tablet norethin drone 0.35 mg oral tablet Start Date: 10/29/20 Status: Ordered Repeat number: 1 Ordered 2021 No Facilit y Access omeprazole 20 mg oral delayed release capsule omeprazo le 20 mg oral delayed release capsule Start Date: 08/13/20 Status: Ordered Repeat number: 1 Ordered 2021 No Facilit y Access omeprazole 20 mg oral delayed release capsule omeprazo le 20 mg oral delayed release capsule Start Date: 05/14/20 Status: Ordered Repeat number: 1 Ordered 2021 No Facilit y Access predniSONE 10 mg oral tablet predniSO NE 10 mg oral tablet Start Date: 10/13/20 Status: Ordered Repeat number: 1 Ordered 2021 No Facilit y Access Allergies, Adverse Reactions, Alerts Combined list of allergies from Department of Defense and Veterans Affairs facilities. It does not include entries that were removed or entered in error. Substance Category Reaction Severity Reaction type Status Date Reported Comments Source No Known Allergies Drug allergy (disorder) active 09/12/2007 [employer] Immunizations Combined list of available immunizations from the Department of Defense and Veterans Affairs facilities. Immunization Series Date Given Administered By Site Reaction Lot Number CVX Code Drug Pediatric Social Worker Status Comments Source influenza virus vaccine, inactivated 2023 VENKATA Awad charlene, left (delt oid) [id number] [employer] complet ed influenza virus vaccine, inactivat ed 01/23/24 Given 8203R-1 04 MDG INFLUENZA, UNSPECIFIED FORMULATION 2022 88 complet ed HISTORICA L INFORMATI ON - FROM PATIENT'S WRITTEN RECORD, [facility] [employer] [facility] INFLUENZA, UNSPECIFIED FORMULATION 2022 88 complet ed HISTORICA L INFORMATI ON - FROM OTHER PROVIDER, [facility] Influenza, injectable, quadrivalent, preservative free 0 2021 [id number] 150 SmithKline (B) complet ed Influenza , injectabl e, quadrival ent, preservat mahendra free DoD influenza, injectable, quadrivalent 2020 [id number] 158 GlaxoSmithKli ne complet ed influenza , injectabl e, quadrival ent 01/26/21 Given Ambulat ory Pharmac y influenza, injectable, quadrivalent, contains preservative 9 2020 [id number] 158 SmithKline (SKB) complet ed influenza , injectabl e, quadrival ent, contains preservat mahendra DoD COVID Vaccine Pfizer 2020 [id number] 208 PFIZER complet ed COVID Vaccine Pfizer 01/09/21 Given Ambulat ory Pharmac y SARS-COV-2 (COVID-19) VACCINE,UNSPE CIFIED 2020 213 complet ed HISTORICA L INFORMATI ON - FROM PATIENT'S WRITTEN RECORD, J[facility] SARS-COV-2 (COVID-19) vaccine, mRNA, spike protein, LNP, preservative free, 30 mcg/0.3mL dose 2 2020 [id number] 208 Acc[employer] Inc (PFR) complet ed SARS-COV- 2 (COVID-19 ) vaccine, mRNA, spike protein, LNP, preservat mahendra free, 30 mcg/0.3mL dose DoD COVID Vaccine Pfizer 2020 [id number] 208 PFIZER complet ed COVID Vaccine Pfizer 12/12/20 Given Ambulat ory Pharmac y SARS-COV-2 (COVID-19) VACCINE,UNSPE CIFIED 2020 213 complet ed HISTORICA L INFORMATI ON - FROM PATIENT'S WRITTEN RECORD, [facility] SARS-COV-2 (COVID-19) vaccine, mRNA, spike protein, LNP, preservative free, 30 mcg/0.3mL dose 1 2020 [id number] 208 Pfizer, Inc (PFR) complet ed SARS-COV- 2 (COVID-19 ) vaccine, mRNA, spike protein, LNP, preservat mahendra free, 30 mcg/0.3mL dose DoD influenza, injectable, quadrivalent- pf 2019 [id number] 150 Seqirus complet ed influenza , injectabl e, quadrival ent-pf 02/09/20 Given Ambulat ory Pharmac y Influenza, injectable, quadrivalent, preservative free 1 2019 [id number] 077 150 Seqirus (SEQ) complet ed Influenza , injectabl e, quadrival ent, preservat mahendra free DoD influenza, injectable, quadrivalent 2018 [id number] 888 158 [employer] complet ed influenza , injectabl e, quadrival ent 01/21/19 Given Ambulat ory Pharmac y influenza, injectable, quadrivalent, contains preservative 1 2018 [id number] 888 158 Seqirus (SEQ) complet ed influenza , injectabl e, quadrival ent, contains preservat mahendra DoD influenza, injectable, quadrivalent 2017 [id number] 158 [employer] complet ed influenza , injectabl e, quadrival ent 01/25/18 Given Ambulat ory Pharmac y influenza, injectable, quadrivalent, contains preservative 12 2017 [id number] 158 Seqirus (SEQ) comple t ed influenza , injectabl e, quadrival ent, contains preservat mahendra DoD typhoid Vi capsular polysaccharid e vac 2017 [id number] 101 sanofi pasteur complet ed typhoid Vi capsular polysacch aride vac 3/3/18 Given Ambulat ory Pharmac y typhoid Vi capsular polysaccharid e vaccine 4 2017 [id number] 101 Sanofi Pasteur (PMC) complet ed typhoid Vi capsular polysacch aride vaccine DoD TDAP 2017 115 complet ed HISTORICA L INFORMATI ON - FROM PATIENT'S WRITTEN RECORD, [facility] tetanus, diphtheria, acellular pertu is 2017 [id number] 115 GlaxoSmithKli ne complet ed tetanus, diphtheri a, acellular pertussis 04/01/17 Given Ambulat ory Pharmac y tetanus toxoid, reduced diphtheria toxoid, and acellular pertu is vaccine, adsorbed 2 2017 [id number] 115 Exploration LabsR[employer] Mobile (SKB) complet ed tetanus toxoid, reduced diphtheri a toxoid, and acellular pertussis vaccine, adsorbed DoD Influenza, inj, MDCK, quadrivalent- pf 2016 [id number] 171 Seqirus complet ed Influenza , inj, MDCK, quadrival ent-pf 01/26/17 Given Ambulat ory Pharmac y Influenza, injectable, Madin Pina Canine Kidney, preservative free, quadrivalent 11 [id number] 171 Seqirus (SEQ) comple t ed Influenza , injectabl e, Madin Pina Canine Kidney, preservat mahendra free, quadrival ent DoD influenza, seasonal, injectable 2015 [id number] 141 [employer] Biomedical comple t ed influenza , seasonal, injectabl e 01/10/16 Given Ambulat ory Pharmac y Influenza, seasonal, injectable 1 2015 [id number] 141 (IDB) complet ed Influenza , seasonal, injectabl e DoD typhoid Vi capsular polysaccharid e vac 2015 [id number] 101 sanofi pasteur complet ed typhoid Vi capsular polysacch aride vac 06/22/15 Given Ambulat ory Pharmac y typhoid Vi capsular polysaccharid e vaccine 3 2015 P4340-2 101 Sanofi Pasteur (PMC) complet ed typhoid Vi capsular polysacch aride vaccine DoD influenza, seasonal, injectable 2014 [id number] 1A 141 CSL Behring complet ed influenza , seasonal, injectabl e 12/28/14 Given Ambulat ory Pharmac y FLU,3 YRS (HISTORICAL) 2014 88 complet ed [facility] Influenza, seasonal, injectable 9 2014 [id number] 1A 141 CSL mFoundryherAd Summos, Inc. (CSL) complet ed Influenza , seasonal, injectabl e DoD influenza, seasonal, injectable 2013 [id number] 141 ID Biomedical comple t ed influenza , seasonal, injectabl e 12/28/13 Given Ambulat ory Pharmac y Influenza, seasonal, injectable 8 2013 [id number] 141 (IDB) complet ed Influenza , seasonal, injectabl e DoD influenza, live, intranasal,qu adrivalent 2012 [id number] 149 Medimmune Inc comple t ed influenza , live, intranasa l,quadriv alent 12/05/12 Given Ambulat ory Pharmac y influenza, live, intranasal, quadrivalent 7 2012 [id number] 149 MedImmune, Inc. (MED) complet ed influenza , live, intranasa l, quadrival ent DoD measles virus vaccine 0 2012 05 () Not Given measles virus vaccine DoD rubella virus vaccine 0 2012 06 () Not Given rubella virus vaccine DoD mumps virus vaccine 0 2012 07 () Not Given mumps virus vaccine DoD Human Papillomaviru s,quadrivalen t(HPV4) 2012 [id number] 62 Merck & Company Inc complet ed Human Papilloma virus,tigre drivalent (HPV4) 10/16/12 Given Ambulat ory Pharmac y HPV, QUADRIVALENT 2012 62 complet ed HISTORICA L INFORMATI ON - FROM PATIENT'S WRITTEN RECORD, [facility] papilloma virus vaccine, quadrivalent 0 2012 [id number] 62 Merck (MSD) complet ed human papilloma virus vaccine, quadrival ent DoD influenza virus vaccine, live 2011 [id number] 111 Medimmune Inc comple t ed influenza virus vaccine, live 12/05/11 Given Ambulat ory Pharmac y anthrax vaccine 2011 [id number] 24 Emergent Biosolutions complet ed anthrax vaccine 12/05/11 Given Ambulat ory Pharmac y anthrax vaccine 7 2011 [id number] 24 [employer] [place] ([facility]) complet ed anthrax vaccine DoD influenza virus vaccine, live, attenuated, for intranasal use 6 2011 [id number] 111 Ruby Ribbon, Inc. (MED) complet ed influenza virus vaccine, live, attenuate d, for intranasa l use DoD influenza virus vaccine, live 2010 [id number] 111 AppTankmmune Inc comple t ed influenza virus vaccine, live 12/02/10 Given Ambulat ory Pharmac y influenza virus vaccine, live, attenuated, for intranasal use 0 2010 [id number] 111 ONE RECOVERYune, Inc. (MED) complet ed influenza virus vaccine, live, attenuate d, for intranasa l use DoD typhoid Vi capsular polysaccharid e vac 2010 [id number] 101 sanofi pasteur complet ed typhoid Vi capsular polysacch aride vac 08/10/10 Given Ambulat ory Pharmac y Human Papillomaviru s,quadrivalen t(HPV4) 2010 [id number] 62 [employer]tering [employer] Inc complet ed Human Papilloma virus,tigre drivalent (HPV4) 08/10/10 Given Ambulat ory Pharmac y anthrax vaccine 2010 [id number] 24 [employer] complet ed anthrax vaccine 08/10/10 Given Ambulat ory Pharmac y HPV, QUADRIVALENT 2010 62 complet ed HISTORICA L INFORMATI ON - FROM PATIENT'S WRITTEN RECORD, [facility] anthrax vaccine 6 2010 [id number] 24 [employer] [place] ([facility]) complet ed anthrax vaccine DoD human papilloma virus vaccine, quadrivalent 1 2010 [id number] 62 Merck (MSD) complet ed human papilloma virus vaccine, quadrival ent DoD typhoid Vi capsular polysaccharid e vaccine 1 2010 [id number] 101 Sanofi Pasteur ([facility]) complet ed typhoid Vi capsular polysacch aride vaccine DoD influenza virus vaccine, live 2009 [id number] 111 Chatterousune Inc comple t ed influenza virus vaccine, live 11/27/09 Given Ambulat ory Pharmac y influenza virus vaccine, live, attenuated, for intranasal use 1 2009 [id number] 111 ONE [employer]OV[employer] Inc. (MED) complet ed influenza virus vaccine, live, attenuate d, for intranasa l use DoD anthrax vaccine 2009 [id number] 24 [employer] complet ed anthrax vaccine 05/21/09 Given Ambulat ory Pharmac y anthrax vaccine 5 2009 [id number] 24 [employer] [place] ([facility]) complet ed anthrax vaccine DoD tuberculin purified protein derivative 2009 [id number] 96 sanofi pasteur complet ed tuberculi n purified protein derivativ e 04/15/09 Given Ambulat ory Pharmac y Novel influenza-H1N 1-09, injectable 2009 [id number] 1A 127 Novartis Pharmaceutica ls complet ed Novel influenza -[id number], injectabl e 04/15/09 Given Ambulat ory Pharmac y Novel influenza-H1N 1-09, injectable 1 2009 [id number] 1A 127 Novartis Pharmaceutica l [place]. (NOV) complet ed Novel influenza -B4R9-19, injectabl e DoD influenza virus vaccine,split 2008 [id number] 1A 15 CSL Behring complet ed influenza virus vaccine,s plit 12/09/08 Given Ambulat ory Pharmac y influenza virus vaccine, split virus (incl. purified surface antigen)-reti red CODE 1 2008 [id number] 1A 15 CSL [employer], Inc. (CSL) complet ed influenza virus vaccine, split virus (incl. purified surface antigen)- retired CODE DoD anthrax vaccine 2008 [id number] 24 [employer] complet ed anthrax vaccine 10/22/08 Given Ambulat ory Pharmac y anthrax vaccine 4 2008 [id number] 24 [employer] [place] ([facility]) complet ed anthrax vaccine DoD typhoid Vi capsular polysaccharid e vac 2008 [id number] 101 sanofi pasteur complet ed typhoid Vi capsular polysacch aride vac 09/02/08 Given Ambulat ory Pharmac y typhoid Vi capsular polysaccharid e vaccine 1 2008 [id number] 101 Sanofi Pasteur ([facility]) complet ed typhoid Vi capsular polysacch aride vaccine DoD anthrax vaccine 2008 [id number] 24 [employer] complet ed anthrax vaccine 04/21/08 Given Ambulat ory Pharmac y anthrax vaccine 4 2008 [id number] 24 [employer] [place] ([facility]) complet ed anthrax vaccine DoD vaccinia (smallpox) vaccine 2008 VV04-00 3A 75 Page [employer] [facility] complet ed vaccinia (smallpox ) vaccine 04/08/08 Given Ambulat ory Pharmac y vaccinia (smallpox) vaccine 1 2008 VV04-00 3A 75 [facility] complet ed vaccinia (smallpox ) vaccine DoD influenza virus vaccine, live 2007 [id number] 111 [employer] Inc comple t ed influenza virus vaccine, live 01/31/08 Given Ambulat ory Pharmac y influenza virus vaccine, live, attenuated, for intranasal use 1 2007 [id number] 111 Ruby Ribbon, Inc. (MED) complet ed influenza virus vaccine, live, attenuate d, for intranasa l use DoD anthrax vaccine 2007 [id number] 24 [employer] complet ed anthrax vaccine 11/20/07 Given Ambulat ory Pharmac y anthrax vaccine 3 2007 [id number] 24 [employer] [place] (MIP) complet ed anthrax vaccine DoD anthrax vaccine 2007 [id number] 24 [employer] complet ed anthrax vaccine 11/06/07 Given Ambulat ory Pharmac y anthrax vaccine 2 2007 [id number] 24 [employer] [place] (MIP) complet ed anthrax vaccine DoD hepatitis A adult vaccine 2007 [id number] 52 GlaxoSmithKli ne complet ed hepatitis A adult vaccine 10/23/07 Given Ambulat ory Pharmac y anthrax vaccine 2007 [id number] 24 [employer] complet ed anthrax vaccine 10/23/07 Given Ambulat ory Pharmac y HEP A, ADULT 2007 52 complet ed HISTORICA L INFORMATI ON - FROM PATIENT'S WRITTEN RECORD, [facility] anthrax vaccine 1 2007 [id number] [employer] [place] (MIP) complet ed anthrax vaccine DoD hepatitis A vaccine, adult dosage 2 2007 [id number] 52 SmithKline (SKB) complet ed hepatitis A vaccine, adult dosage DoD varicella virus vaccine 2007 [id number] 21 Merck & Company Inc complet ed varicella virus vaccine 05/20/07 Given Ambulat ory Pharmac y VARICELLA 2007 21 complet ed HISTORICA L INFORMATI ON - FROM PATIENT'S WRITTEN RECORD, [facility] [place] [facility] varicella virus vaccine 2 2007 [id number] 21 Merck (MSD) complet ed varicella virus vaccine DoD varicella virus vaccine 2007 [id number] 21 Merck & Company Inc complet ed varicella virus vaccine 04/18/07 Given Ambulat ory Pharmac y hepatitis A adult vaccine 2007 [id number] 52 GlaxoSmithKli ne complet ed hepatitis A adult vaccine 04/18/07 Given Ambulat ory Pharmac y HEP A, ADULT 2007 52 complet ed HISTORICA L INFORMATI ON - FROM PATIENT'S WRITTEN RECORD, [facility] [place] [facility] HEP B, ADULT 2007 43 complet ed HISTORICA L INFORMATI ON - FROM PATIENT'S WRITTEN RECORD, [facility] [place] VARICELLA 2007 21 complet ed HISTORICA L INFORMATI ON - FROM PATIENT'S WRITTEN RECORD, [facility] [place] [facility] [facility] measles, mumps and rubella virus vaccine 1 2007 03 () Not Given measles, mumps and rubella virus vaccine DoD varicella virus vaccine 1 2007 [id number] 21 Merck (MSD) complet ed varicella virus vaccine DoD hepatitis B vaccine, adult dosage 1 2007 43 () Not Given hepatitis B vaccine, adult dosage DoD hepatitis A vaccine, adult dosage 1 2007 [id number] [facility] hepatitis A vaccine, adult dosage DoD tuberculin purified protein derivative 2007 [id number] 96 sanofi pasteur complet ed tuberculi n purified protein derivativ e 04/15/07 Given Ambulat ory Pharmac y meningococcal A,C,Y,W-135 (MCV4P) 2007 [id number] 114 sanofi pasteur complet ed meningoco ccal A,C,Y,W-1 35 (MCV4P) 04/13/07 Given Ambulat ory Pharmac y tetanus, diphtheria, acellular pertu is 2007 [id number] 115 sanofi pasteur complet ed tetanus, diphtheri a, acellular pertussis 04/13/07 Given Ambulat ory Pharmac y influenza virus vaccine,split 2007 [id number] 15 GlaxoSmithKli ne complet ed influenza virus vaccine,s plit 04/13/07 Given Ambulat ory Pharmac y poliovirus vaccine, inactivated 2007 [id number] 10 sanofi pasteur complet ed polioviru s vaccine, inactivat ed 04/13/07 Given Ambulat ory Pharmac y poliovirus vaccine, inactivated 1 2007 [id number] 10 Sanofi Pasteur (PMC) complet ed polioviru s vaccine, inactivat ed DoD influenza virus vaccine, split virus (incl. purified surface antigen)-reti red CODE 1 2007 [id number] 15 Mill[employer] (SKB) complet ed influenza virus vaccine, split virus (incl. purified surface antigen)- retired CODE DoD meningococcal polysaccharid e (groups A, C, Y and W-135) diphtheria toxoid conjugate vaccine (MCV4P) 1 2007 [id number] Sanofi Pasteur (PMC) complet ed meningoco ccal polysacch aride (groups A, C, Y and W-135) diphtheri a toxoid conjugate vaccine (MCV4P) DoD tetanus toxoid, reduced diphtheria toxoid, and acellular pertu is vaccine, adsorbed 1 2007 [id number] Sanofi Pasteur (PMC) complet ed tetanus toxoid, reduced diphtheri a toxoid, and acellular pertussis vaccine, adsorbed DoD Vital Signs Combined list of inpatient and outpatient Vital Signs from Department of Defense and Veterans Affairs, ranging from 12 months to all on record, depending upon the facility. Vital Sign Value Date Comments Source SYSTOLIC BLOOD PRESSURE 111 11/20/2023 14:56:49 [place] DIASTOLIC BLOOD PRESSURE 78 11/20/2023 14:56:49 [place] PULSE OXIMETRY 97 11/20/2023 14:56:49 [place] WEIGHT 199 11/20/2023 14:56:49 [place] BMI 31 kg/m2 11/20/2023 14:56:49 [place] HEIGHT 67 11/20/2023 14:56:49 [place] TEMPERATURE 98.3 11/20/2023 14:56:49 [place] PULSE 63 11/20/2023 14:56:49 [place] RESPIRATION 19 11/20/2023 14:56:49 [place] Encounters Combined list of: 1) Encounters from Department of Veterans Affairs facilities going backup to the last 18 months, not all VA inpatient encounters are included; 2) Encounters from the Department of Defense facilities going backup to 280 months. Location Location Details Encounter Type Encounter Number Reason For Visit Attending Provider ADM Date DC Date Status Disposition Source ASHA [facility] [place] [address](Opt ometry [facility] [place]) OUTPATIENT [id number] MELVA NAYLOR 04/19 Released w/o Limitations [facility] [place] [address](O ptometr y Clinic [place]) [facility] B Fam Med Team A) OUTPATIENT [id number] JIMENA POOLE 09/10 Released w/o Limitations [facility](H AFB Fam Med Team A) [facility] B Optometry Clinic) OUTPATIENT [id number] EYE EXAM URIEL BATRES 10/21 Released w/o Limitations [facility](H AFB Optomet ry Clinic) [facility] B Fam Med Team A) OUTPATIENT [id number] left knee pain STROPE, BROOKLYN P 10/21 Released w/o Limitations [facility](H AFB Fam Med Team A) [facility] B Optometry Clinic) OUTPATIENT [id number] dfe lp URIEL BATRES 10/29 Released w/o Limitations [facility](H AFB Optomet ry Clinic) [facility] B Fam Med Team A) OUTPATIENT [id number] lipoma of LT hand STROPE, [place]OOK[place]N P 10/31 Released with Work/Duty Limitations [facility](H AFB Fam Med Team A) [facility] B Fam Med Team A) OUTPATIENT [id number] f/u lipoma STROPE, [place] P 11/01 Released w/o Limitations [facility](H AFB Fam Med Team A) [facility](HA B Fam Med Team A) TELE CONSULT [id number] outpati ent procedu re telepho ne follow up STROPE, [place]OOK[place]N P 11/04 [facility](H AFB Fam Med Team A) [facility] B Fam Med Team A) OUTPATIENT [id number] Suture removal JIMENA SAMANIEGO 11/12 Released w/o Limitations [facility]( AFB Fam Med Team A) [facility] B [facility]) OUTPATIENT [id number] flightl INGA Ndiaye Jono 11/14 Released w/o Limitations [facility] B Hearing Conservat ion) OUTPATIENT [id number] peg [id number] TOLU DURON 12/13 Released w/o Limitations [facility] at[facility]) [facility] B Fam Med Team A) TELE CONSULT [id number] VLADIMIR Fischer 01/01 [facility] B Fam Med Team A) OUTPATIENT [id number] [facility] GWYN CASTREJON 01/02 Released w/o Limitations [facility]) [facility] B Audiology ) OUTPATIENT [id number] custom fit MARTINEZ Cortes 02/18 Released w/o Limitations [facility](H AFB Audiolo gy) [facility] B Audiology ) OUTPATIENT [id number] MARTINEZ ELIAS 03/10 Released w/o Limitations [facility](H AFB Audiolo gy) [facility] B Fam Med Team A) OUTPATIENT [id number] panic medicat ion per [facility] Feb CALLPADMINI 03/24 Released w/o Limitations [facility]( AFB Fam Med Team A) [facility] B Fam Med Team A) OUTPATIENT [id number] [facility] DEQUAN CHOI 04/04 Released w/o Limitations [facility]) [facility] B Fam Med Team A) OUTPATIENT [id number] Small Pox [place] RICHARDSON 04/08 Released w/o Limitations [facility](H AFB Fam Med Team A) [facility] B Fam Med Team A) OUTPATIENT [id number] feels bump in right eye MAXIMILIAN ZHANG 06/13 Released w/o Limitations [facility](H AFB Fam Med Team A) [facility] B Health & Wellness/ AD) OUTPATIENT [id number] MARGARITA WUSHERRON IESHA 07/09 Released w/o Limitations [facility]( AFB Health & Wellnes s/AD) [facility] B Fam Med Team A) OUTPATIENT [id number] admin PHA MARTHA LANZA 09/09 Released w/o Limitations [facility]( AFB Fam Med Team A) [facility] 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 AD) OUTPATIENT [id number] cody TODCHARITO BALDO Annette 09/11 Released w/o Limitations [facility]( AF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 AD) [facility] B Fam Med Team A) OUTPATIENT [id number] Pre Deploym ent Malaria [place] RICHARDSON Starla 09/22 Released w/o Limitations [facility]( AFB Fam Med Team A) [facility] B Audiology ) TELE CONSULT [id number] MARTINEZ ELIAS 09/22 [facility]( AFB Audiolo gy) [facility] B Hearing Conservat ion) OUTPATIENT [id number] TOLU DURON 09/29 Released w/o Limitations [facility]( AFB Hearing Conserv ation) [facility](Amb ulance Services Clinic) OUTPATIENT [id number] ANABEL DIANANidia Barnard GEO DEWAYNE 04/20 Released w/o Limitations [employer](A mbulanc e Service s Clinic) [facility](Amb ulance Services Clinic) OUTPATIENT [id number] both ears bleedin HAYLEY Dominique 04/22 Sick at Home/Quarter s [employer](A mbulanc e Service s Clinic) [employer](Cai t Medicine Clinic) OUTPATIENT [id number] owen ferrell/f/u EDYTA PRIEST 04/26 Released w/o Limitations [employer](F light Medicin e Clinic) [employer]RECTION Gold) OUTPATIENT [id number] check membran es ears MIKE TREJO 06/21 Released w/o Limitations [employer](Z [employer]RE[employer] Gold) [employer]([facility] Mental Health [facility]) OUTPATIENT [id number] Saeid Lopez ce Review ALCIDES GAUTHIER 07/16 Released w/o Limitations [employer]([facility] Mental Health [facility]) [employer]([facility] ENT Clinic) OUTPATIENT [id number] tympani c membran e perfora sonya PARK KATHRYN A 08/02 Released w/o Limitations [employer]([facility] ENT [facility]) [employer]([facility] Obstetrician Gynecologist Clinic) OUTPATIENT [id number] annual pap LORELEI MA 08/11 Released w/o Limitations [employer]([facility] Obstetrician Gynecologist [facility]) [employer]([facility]) OUTPATIENT [id number] NUSRAT LOZANO 08/11 Released w/o Limitations [employer](Z ZZ [facility]) [employer]([facility] Obstetrician Gynecologist Clinic) OUTPATIENT [id number] Colpo MITESH KOEHLER 12/24 Released w/o Limitations [employer]([facility] Obstetrician Gynecologist Clinic) [employer]([facility] Optometry Clinic) OUTPATIENT [id number] REE.pt wears cls ANTONELLAEASTON L 12/24 Released w/o Limitations [employer]([facility] Optomet ry Clinic) [employer]([facility] Obstetrician Gynecologist Clinic) TELE CONSULT [id number] colposc opy results MITESH KOEHLER 01/06 [employer]([facility] Obstetrician Gynecologist Clinic) [employer]([facility] Optometry Clinic) OUTPATIENT [id number] bump near center of eye ISSAC NAPOLES 05/23 Released w/o Limitations [employer]([facility] Optomet ry Clinic) [employer]([facility] Optometry [facility]) OUTPATIENT [id number] [place] f/u (pt is having furhter issues) GUSTAVO CAMPA 07/27 Released w/o Limitations [employer]([facility] Optomet ry Clinic) [employer]([facility]) OUTPATIENT [id number] Notes Entered by: Abigail FRIED 27 Sep 2011 0940 ------- ------- ------- ------- -- JEANETH FRIED SANDY R 09/26 Released w/o Limitations [employer](Z [facility]) [employer]([facility]) OUTPATIENT [id number] Notes Entered by: TARAN HERNANDEZ 24 Nov 2011 1205 ------- ------- ------- ------- -- DEPLOYM ENT OUT-PRO CESSING ANGELICA RODRIGUEZ 11/23 Released w/o Limitations [employer]([facility]) [employer]([facility]) OUTPATIENT [id number] control COLLETTEAWILDABRANDT 11/24 Released w/o Limitations [employer]([facility]) [employer]([facility] Mental Health [facility]) OUTPATIENT [id number] Notes Entered by: THAD MARSHALL 25 Nov 2011 1538 ------- ------- ------- ------- -- THAD BLAIR 11/24 Released w/o Limitations [employer]([facility] Mental [facility]) [employer]([facility] Obstetrician Gynecologist [facility]) OUTPATIENT [id number] HPV LORELEI MA 11/28 Released w/o Limitations [employer]([facility] Obstetrician Gynecologist [facility]) [employer]([facility]) OUTPATIENT [id number] Notes Entered by: CÉSAR GARCIA 29 Nov 2011 1108 ------- ------- ------- ------- -- 2795 CÉSAR GARCIA 11/28 Released w/o Limitations [employer]([facility]) [employer]([facility] Obstetrician Gynecologist [facility]) TELE CONSULT [id number] Notes Entered by: MARIVEL MA ED 05 Dec 2011 1039 ------- ------- ------- ------- -- F/u lab results LORELEI MA 12/04 [employer]([facility] Obstetrician Gynecologist [facility]) [employer]([facility]) OUTPATIENT [id number] Notes Entered by: ARIAN ALARCON 05 Dec 2011 1424 ------- ------- ------- ------- -- ZAY Smith 12/04 Released w/o Limitations [employer]([facility]) [employer](ZZZ _Lak_FPC_ Red) OUTPATIENT [id number] left eye swollen shut BAMBI FELTON 12/13 Released w/o Limitations [employer](Z ZZ_Lak_ FPC_Red ) [facility] OUTPATIENT [id number] Theater Provider 02/16 Released w/o Limitations [facility] OUTPATIENT [id number] Theater Provider 07/20 Released w/o Limitations Theater Facilit y [employer]([facility] Optometry [facility]) OUTPATIENT [id number] f/GUSTAVO Farah 10/01 Released w/o Limitations [employer]([facility] Optomet ry Clinic) [employer]([facility]) OUTPATIENT [id number] Notes Entered by: WILBER FITCH 01 Oct 2012 1146 ------- ------- ------- ------- -- MEDICAL RECORD REVIEW- [facility] RIKA CHAUDHARY 10/01 Released w/o Limitations [employer]([facility] Flight Medicin e) [employer]([facility] Optometry [facility]) OUTPATIENT [id number] f/GUSTAVO Farah 10/16 Released w/o Limitations [employer]([facility] Optomet ry [facility]) [employer](ZZZ [facility] CORRECTION Gold) OUTPATIENT [id number] control consult ZOE Pat 12/05 Released w/o Limitations [employer](Z [employer] Lak [employer]RE[employer]) [employer]([facility] DHA [facility]) OUTPATIENT [id number] CÉSAR Burris 12/07 Released w/o Limitations [employer](L [facility]) [employer]) OUTPATIENT [id number] separat ion physica BRANDT Joseph 02/18 Released w/o Limitations [employer](Z [employer]) [employer]([facility] [place] [facility]RECTION Gold) OUTPATIENT [id number] f/u iam ferrell for BRANDT Ortiz 02/28 Released w/o Limitations [employer](Z [employer] [place] [address](AFN G 104 Med Sq-FM) OUTPATIENT [id number] Notes Entered by: REMA PHILIPPE 01 Apr 2017 0950 ------- ------- ------- ------- -- Pre-Dep loyment screen REMA PHILIPPE 04/01 Released w/o Limitations [facility] [place] [address](A FNG 104 Med Sq-FM) [place] [address](AFN G 104 Med Sq-FM) OUTPATIENT [id number] Notes Entered by: TONY ALMEIDA 02 Apr 2017 0805 ------- ------- ------- ------- -- TONY MEDINA 04/02 Released w/o Limitations [facility] [place] [address](A FNG 104 Med Sq-FM) [place] [address](AFN G 104 Med Sq-FM) OUTPATIENT [id number] Notes Entered by: LUIS MONTALVO 19 Jun 2018 1304 ------- ------- ------- ------- -- Annual Audiogr am TONY ALMEIDA 06/19 Released w/o Limitations [facility] [place] [address](A FNG 104 Med Sq-FM) [place] [id number](AFN G 104 Med Sq-FM) OUTPATIENT [id number] Notes Entered by: TONY ALMEIDA 07 May 2019 1547 ------- ------- ------- ------- -- MARU TONY ALMEIDA PATY 05/07 Released w/o Limitations [facility] [place] [address](A FNG 104 Med Sq-FM) [facility](AFN G 104 Med Sq-FM) OUTPATIENT [id number] 1 Notes Entered by: ALEXIS WYATT 01 May 2020 0848 ------- ------- ------- ------- -- NANCY LOPEZ 05/01 Released w/o Limitations [facility] [place] [address](A FNG 104 Med Sq-FM) [facility], [facility](AFN G 104 Med Sq-FM) OUTPATIENT [id number] 2 LUDMILA ALMEIDAJOEL NEWMAN 05/29 Released w/o Limitations [facility] [place] [address](A FNG 104 Med Sq-FM) [place] [address](AFN G 104 Med Sq-FM) OUTPATIENT [id number] Notes Entered by: NILAM KHAN 04 Jun 2021 0901 ------- ------- ------- ------- -- Audiogr am/JEANETH/ ILYA TURCIOS 06/04 Released w/o Limitations [facility] [place] [address](A FNG 104 Med Sq-FM) [place] [address](AFN G 104 Med Sq-FM) OUTPATIENT [id number] Notes Entered by: TONY ALMEIDA 24 Jun 2021 1100 ------- ------- ------- ------- -- back pain TONY ALMEIDASULEMAN 06/24 Released with Work/Duty Limitations [facility] [place] [address](A FNG 104 Med Sq-FM) [place] [address](AFN G 104 Med Sq-FM) TELE CONSULT [id number] TONY ALMEIDASULEMAN 07/06 [facility] [place] [address](A FNG 104 Med Sq-FM) [place] [address](AFN G 104 Med Sq-FM) TELE CONSULT [id number] TONY ALMEIDASULEMAN 07/08 [facility] [place] [address](A FNG 104 Med Sq-FM) [place] [address](AFN G 104 Med Sq-FM) TELE CONSULT [id number] TONY ALMEIDASULEMAN 07/13 [facility] [place] [address](A FNG 104 Med Sq-FM) [place] [address](AFN G 104 Med Sq-FM) TELE CONSULT [id number] TONY ALMEIDA PATY 04/01 [facility] [place] [address](A FNG 104 Med Sq-FM) [facility] [place] [address](AFN G 104 Med Sq-FM) OUTPATIENT [id number] Notes Entered by: TONY ALMEIDA PATY 26 May 2022 1335 ------- ------- ------- ------- -- PHAQ TONY ALMEIDA PATY 05/26 Released with Work/Duty Limitations [facility] [place] [address](A FNG 104 Med Sq-FM) [facility] Outpatient Encounter [id number] 02/01 [facility] En[facility] [id number] 10[facility]11 [facility] Encounter [id number] 10/11 [facility] Encounter [id number] 11/14 [facility] Encounter [id number] 11/14 [facility] Encounter [id number] 11/14 [facility] Encounter [id number] 11/14 [facility] Encounter [id number] 11/14 [facility] OFFICE O/P [place] 60 MIN [id number] Diagnos is: ICD-10- CM K29.50 Unspeci fied chronic gastrit is without bleedin KHALIDA Gabriel 11/19 [place] [facility] Encounter [id number]/19 [facility] Out[facility] Encounter [id number] 1. KHALIDA AMOS C 11/19 [facility] QNHP OL DIG ASSMT&MGMT 11-20 [id number] Diagnos is: ICD-10- CM K20.90 Esophag itis, unspeci fied without bleedin g ANAISTRACIE BOLTON ISSKYLER J 11/20 [facility] Outpatient Encounter [id number] 01/17 [facility] Outpatient Encounter [id number] ANJALI HUNT 01/21 [facility] 8203R-104 MDG Mass Vaccine [id number] 01/22 8203R-1 04 MDG 8203R-104 MDG Between Visit [id number] 02/15 Discharge Disposition: Home or Self Care 8203R-1 04 MDG 8203R-104 MDG Between Visit [id number] 02/15 Discharge Disposition: Home or Self Care 8203R-1 04 MDG [facility] Outpatient Encounter [id number] 02/19 [facility] 8203R-104 MDG Care Not Rendered [id number] 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, 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, 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 ENT ([facility]) 06/30 Discharge Disposition: Home or Self Care 8203R-1 04 MDG 8203R-104 MDG Outpatient [id number] JEWELL DAVILA 06/30 Discharge Disposition: Home or Self Care 8203R-1 04 MDG [facility] Outpatient Encounter [id number] PRUDENCE SANCHEZ 07/09 [facility] Outpatient Encounter [id number] 07/11 [facility] Procedures Combined list of: 1) Procedures from Department of Veterans Affairs facilities going back up to thelast 18 months, not all VA non-surgical procedures are included; 2) All procedures from the Department of Defense facilities. Procedure Procedure Type Code Date Perfomer Comments Sourc e No data available for this section Ambulato ry Pharmacy Supervised Injection Intramuscular Supervised Injection Intramuscular [address] [facility] Ophthalmological Prior Patient Start Intermediate Level Care Ophthalmological Prior Patient Start Intermediate Level Care 06627 2012 GUSTAVO [facility]PA Ophthalmological Prior Patient Start Intermediate Level Care Ophthalmological Prior Patient Start Intermediate Level Care 03845 2012 G[facility] Psychologic Testing And Report Administered By User Experience Designer Psychologic Testing And Report Administered By User Experience Designer [address] [facility] Psychologic Testing And Report Administered By Computer Psychologic Testing And Report Administered By Computer [address] [facility] Ophthalmological Prior Patient Start Intermediate Level Care Ophthalmological Prior Patient Start Intermediate Level Care 18596 2011 GUSTAVO CAMPA Ophthalmological Prior Patient Start Intermediate Level Care Ophthalmological Prior Patient Start Intermediate Level Care [address] [facility] Spectacles Services Fitting Monofocals (Not For Aphakia) Spectacles Services Fitting Monofocals (Not For Aphakia) [address] [facility] Determination Of Refractive State Determination Of Refractive State [address] [facility] Ophthalmological New Patient Start Comprehensive Care Ophthalmological New Patient Start Comprehensive Care [address] [facility] Colposcopy With Biopsy Colposcopy With Biopsy [address] [facility] Screening papanicolaou smear; obtaining, preparing and conveyance of cervical or vaginal smear to laboratory [address] [facility] Psychiatric Evaluation Review of Records and Reports Psychiatric Evaluation Review of Records and Reports [address] [facility] Oral Surgery Tooth Extraction 2009 CECE ARMSTRONG [address] [facility] Psychiatric Evaluation Review of Records and Reports Psychiatric Evaluation Review of Records and Reports [id number] [facility] Psychiatric Evaluation Review of Records and Reports Psychiatric Evaluation Review of Records and Reports [address] [facility] Threshold Audiogram (Pure Tone) Threshold Audiogram (Pure Tone) [id number] 2008 TOLU DURON. [facility] Form 2216 hard copy in medical record dated this date for audiometric testing results. [facility] Vaginal Wet [place] Sm[place] Vaginal [place] [address] [facility] Screening papanicolaou smear; obtaining, preparing and conveyance of cervical or vaginal smear to laboratory [address] [facility] Medical Nutrition Therapy Group (2 or More Individual(s)) Medical Nutrition Therapy Group (2 or More Individual(s)) [id number] [facility] Psychiatric Therapy Individual Approximately 45-50 Minutes Psychiatric Therapy Individual Approximately 45-50 Minutes [id number] 2008 MITESH MAZA Psychiatric Therapy Individual Approximately 45-50 Minutes Psychiatric Therapy Individual Approximately 45-50 Minutes [id number] 2008 MITESH MZAA Psychiatric Evaluation Comprehensive Examination Psychiatric Evaluation Comprehensive Examination [id number] 2007 MITESH MAZA Patient Counseling Medical Management Individual Patient Patient Counseling Medical Management Individual Patient [id number] 2007 MARTINEZ ELIAS Ear mold/insert, not disposable, any type [address] [facility] Ear mold/insert, not disposable, any type 2007 MARTINEZ ELIAS Patient Counseling Medical Management Individual Patient Patient Counseling Medical Management Individual Patient [id number] 2007 MARTINEZ ELIAS Threshold Audiogram (Pure Tone) Threshold Audiogram (Pure Tone) [address] [facility] Visual Function Screening Visual Function Screening [address] [facility] Lipectomy Of Leg Lipectomy Of Leg [address] [facility] Ophthalmological Prior Patient Start Intermediate Level Care Ophthalmological Prior Patient Start Intermediate Level Care [id number] 2007 ACQUISTAPAURIEL Conner [employer] [facility] Fitting Monofocals (Not For Aphakia) [facility] [facility] Fitting Monofocals (Not For Aphakia) 67738 2007 URIEL SALMERON Prescription & Fitting Bilateral Corneal Lenses (Not Aphakia Prescription & Fitting Bilateral Corneal Lenses (Not Aphakia 33325 2007 URIEL SALMERON Determination Of Refractive State Determination Of Refractive State [id number] 2007 URIEL SALMERON Ophthalmological New Patient Start Comprehensive Care Ophthalmological New Patient Start Comprehensive Care [id number] 2007 URIEL SALMERON [employer] [facility] Fitting Monofocals (Not For Aphakia) [employer] [facility] Fitting Monofocals (Not For Aphakia) 66243 2007 MELVA NAYLOR INJECTION, PENICILLIN G BENZATHINE AND PENICILLIN G PROCAINE, UP TO 1,200,000 UNITS 2007 DoD FITTING OF SPECTACLES, EXCEPT FOR APHAKIA; MONOFOCAL 2007 DoD THERAPEUTIC, PROPHYLACTIC, OR DIAGNOSTIC INJECTION (SPECIFY SUBSTANCE OR DRUG); SUBCUTANEOUS OR INTRAMUSCULAR 2012 DoD OPHTHALMOLOGICAL SERVICES: MEDICAL EXAMINATION AND EVALUATION, WITH INITIATION OR CONTINUATION OF DIAGNOSTIC AND TREATMENT PROGRAM; INTERMEDIATE, ESTABLISHED PATIENT 2012 DoD OPHTHALMOLOGICAL SERVICES: MEDICAL EXAMINATION AND EVALUATION, WITH INITIATION OR CONTINUATION OF DIAGNOSTIC AND TREATMENT PROGRAM; INTERMEDIATE, ESTABLISHED PATIENT 2012 DoD PSYC TSTNG(PSYCODIAG ASSESS,EMOTITY,INTE LLECTUAL ABILITIES,PERSONALI TY&PSYCOPATHOLOGY,E G,MMPI&WAIS),W QUALIFIED HEALTH CARE PROFSIONAL INTERP&RPT,ADMINIST ERED SPOTTER DRIVER,/HR,TECH TME,FCE-2-FCE 2011 DoD OPHTHALMOLOGICAL SERVICES: MEDICAL EXAMINATION AND EVALUATION, WITH INITIATION OR CONTINUATION OF DIAGNOSTIC AND TREATMENT PROGRAM; INTERMEDIATE, ESTABLISHED PATIENT 2011 DoD OPHTHALMOLOGICAL SERVICES: MEDICAL EXAMINATION AND EVALUATION, WITH INITIATION OR CONTINUATION OF DIAGNOSTIC AND TREATMENT PROGRAM; INTERMEDIATE, ESTABLISHED PATIENT 2011 DoD FITTING OF SPECTACLES, EXCEPT FOR APHAKIA; MONOFOCAL 2010 DoD COLPOSCOPY OF THE CERVIX INCLUDING UPPER/ADJACENT VAGINA; WITH BIOPSY(S) OF THE CERVIX AND ENDOCERVICAL CURETTAGE 2010 [facility] SCREENING PAPANICOLAOU SMEAR; OBTAINING, PREPARING AND CONVEYANCE OF CERVICAL OR VAGINAL SMEAR TO LABORATORY 2010 [facility] PSYCHIATRIC EVALUATION OF HOSPITAL RECORDS, OTHER PSYCHIATRIC REPORTS, PSYCHOMETRIC AND/OR PROJECTIVE TESTS, AND OTHER ACCUMULATED DATA FOR MEDICALDIAGNOSTIC PURPOSES 2010 [facility] URINE TEST, BY VISUAL COLOR COMPARISON METHODS 2010 [facility] PSYCHIATRIC EVALUATION OF HOSPITAL RECORDS, OTHER PSYCHIATRIC REPORTS, PSYCHOMETRIC AND/OR PROJECTIVE TESTS, AND OTHER ACCUMULATED DATA FOR MEDICALDIAGNOSTIC PURPOSES 2008 [facility] PSYCHIATRIC EVALUATION OF HOSPITAL RECORDS, OTHER PSYCHIATRIC REPORTS, PSYCHOMETRIC AND/OR PROJECTIVE TESTS, AND OTHER ACCUMULATED DATA FOR MEDICALDIAGNOSTIC PURPOSES 2008 [facility] PURE TONE AUDIOMETRY (THRESHOLD); AIR ONLY 2008 DoD SCREENING PAPANICOLAOU SMEAR; OBTAINING, PREPARING AND CONVEYANCE OF CERVICAL OR VAGINAL SMEAR TO LABORATORY 2008 [facility] MEDICAL NUTRITION THERAPY; GROUP (2 OR MORE INDIVIDUAL(S)), EACH [address] [facility] INDIVIDUAL PSYCHOTHERAPY, INSIGHT ORIENTED, BEHAVIOR MODIFYING AND/OR SUPPORTIVE, IN AN OFFICE OR OUTPATIENT FACILITY, APPROXIMATELY 45 TO 50 MINUTES [id number] WITH THE PATIENT 2008 [facility] INDIVIDUAL PSYCHOTHERAPY, INSIGHT ORIENTED, BEHAVIOR MODIFYING AND/OR SUPPORTIVE, IN AN OFFICE OR OUTPATIENT FACILITY, APPROXIMATELY 45 TO 50 MINUTES [id number] WITH THE PATIENT 2008 [facility] PSYCHIATRIC DIAGNOSTIC INTERVIEW EXAMINATION 2007 [facility] EAR MOLD/INSERT, NOT DISPOSABLE, ANY TYPE 2007 DoD EAR MOLD/INSERT, NOT DISPOSABLE, ANY TYPE 2007 [facility] PURE TONE AUDIOMETRY (THRESHOLD); AIR ONLY 2007 DoD VIS FUNCT SCREEN,AUTOMAT/SEMI -AUTOMAT BILAT QUANT DETERM VISUAL ACUITY,OCULAR ALIGN,COLOR VISION,PSEUDOISOCHR OMAT PLATES,& FIELD VIS (MAY INC ALL/SOME SCRN DETERM FOR CONTRAST SENSITIV,VIS UND GLARE) 2007 DoD EXCISION, EXCESSIVE SKIN AND SUBCUTANEOUS TISSUE (INCLUDES LIPECTOMY); LEG 2007 [facility] OPHTHALMOLOGICAL SERVICES: MEDICAL EXAMINATION AND EVALUATION, WITH INITIATION OR CONTINUATION OF DIAGNOSTIC AND TREATMENT PROGRAM; INTERMEDIATE, ESTABLISHED PATIENT 2007 DoD FITTING OF SPECTACLES, EXCEPT FOR APHAKIA; MONOFOCAL 2007 DoD Social History Combined list of available smoking, tobacco, and other social history from [facility] Defense and [facility] facilities. Social History Type Response Date Comment Sourc e Tobacco smoking status NHIS [facility] NEVER USED 11/20/2023 [place] [facility] [place] [facility] History of tobacco use VA-TOBACCO NEVER USED 11/20/2023 [place] Sex Representation Female (finding) 07/01/2021 Unknown Organization History of tobacco use LIFETIME NON-TOBACCO USER 12/30/2014 [place] Sexual Orientation [facility] Gender identity [facility] This section is an empty social history section. DoD Assessment and Plan Combined list of future care activities from [facility] of Defense and Veterans Affairs facilities (e.g., assessment and plan notes, appointments, orders, and referrals). Additional future care activities may be listed in the Plan of Care section. 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 ? - JLV reviewed. ? - Member to f/u with PCM for all CPS due. ? - Member meets standards for retention/deployment IAW [id number] and MSD:? ?YES? ? ? - Member needs profile for duty/fitness/mobility restrictions:? NO? Diagnostic Tests PendingHIV-1/O/2 06/30/24Repository Sample, Serum 06/30/24 07/16/2024 [id number] MDG Plan of Care List of future care activities from Department of Veterans Affairs facilities. Additional future care activities may be listed in the Assessment and Plan section. Date/Time Care Activity Care Activity Detail Facili ty 11/18/2024 AMBULATORY - MEDICINE AMBULATORY - [facility] Functional Status Combined list of recent functional and cognitive assessments recorded at [facility] [place] Functional [place] Measurement (FIM) Scale: 1 = Total Assistance (Subject = 0% +), 2 = Maximal Assistance (Subject = 25% +), 3 = Moderate Assistance (Subject = 50% +), 4 = Minimal Assistance (Subject = 75% +), 5 = Supervision, 6 = Modified [place] (Device), 7 = Complete [place] (Timely, Safely). Assessment Date/Time Source Assessment Type Assessment Skill Assessment Score Assessment Details No data available for this section
== END 2024-07-16 14:47 | disposition home or self-care (01) ==
LOC: HO.HMCC 14:18
PROVIDERS: PCP Internal Medicine; Visit Provider Internal Medicine
DX: Z00.01 Encounter for general adult medical examination with abnormal findings (principal); B00.9 Herpesviral infection, unspecified; K20.90 Esophagitis, unspecified without bleeding; M51.26 Other intervertebral disc displacement, lumbar region

== ENCOUNTER → 2024-07-16 14:17 | Outpatient (BNVA) | payer BC, SELFPAY | PROVIDERS: PCP Internal Medicine; Visit Provider Internal Medicine | DX: Z00.01 Encounter for general adult medical examination with abnormal findings (principal); B00.9 Herpesviral infection, unspecified; K20.90 Esophagitis, unspecified without bleeding; M51.26 Other intervertebral disc displacement, lumbar region | CPT/HCPCS: 96127 ==